=== PATIENT | female | born 1945 | race Caucasian/White ===

== ENCOUNTER 2016-11-14 16:44 | Inpatient (IN) | payer OTHER, MEDICARE ==
[~2016-11-14] VITALS: Ht 160 cm; Wt 63.5 kg
[~2016-11-14 16:44] MED LIST: ADVAIR DISKUS 21 DSK INH; AZITHROMYCIN500 MG PO; DOXYCYCLINE HY100 M2 PO; IBUPROFEN800 M1 PO; PAROXETINE20 MG PO; PEPCID20 MG PO; PREDNISONE 20MG20 MG PO; PROAIR HFA0.09 MG/Ac INH; SPIRIVA 18 MCG18 MCG INH
--- NOTE | 2016-11-14 16:50 | NUR ---
PT TO TRIAGE WITH HER DAUGHTER, PT HAS HISTORY OF COPD AND IS O2 DEPENDENT AT 2L AT NIGHT, PT STATES THAT SINCE TUESDAY SHE HAS BEEN FEELING WEAK, SOB, PT USED HER O2 ALL DAY TODAY , ON ARRIVAL O2 SAT 91 % ON RA. LOOSE NON PRODUCTIVE COUGH NOTED. PT USED NEBULIZER WITH NO RELIEF
[2016-11-14] MEDS ORDERED: PROAIR HFA8.5 GM INH (17:37)
[2016-11-14] MEDS ORDERED: ALBUTEROL2.5 MG/3 M INH/SOL (17:37)
[2016-11-14] MEDS ORDERED: SPIRIVA18 MCG INH (17:38)
[2016-11-14] MEDS ORDERED: NAMENDA XR28 M1 PO (17:39)
[2016-11-14] MEDS ORDERED: BUSPIRONE HCL15 M1 (17:40)
--- NOTE | 2016-11-14 17:40 | NUR ---
APPRECIATE TRIAGE NOTE. PT TO ROOM 3 VIA WHEELCHAIR BUT INSISTED SHE COULD AMBULATE TO BATHROOM TO PROVIDE URINE SPECIMEN. PT NOTED TO BECOME SHORT OF BREATH WITH EXERTION AND ASSISTED BACK TO ROOM VIA WHEELCHAIR. AT REST PT DOES NOT APPEAR SHORT OF BREATH BUT SAO2 IS 89% ON RA. PT PLACED ON NC 2L WITH IMPROVEMENT TO 94%. RT TO BEDSIDE AT THIS TIME FOR DUONEB, NURSING WILL CONTINUE TO MONITOR.
[2016-11-14] MEDS ORDERED: PAROXETINE HCL20 M1 PO (17:42)
[2016-11-14] MEDS ORDERED: ADVAIR 250-501 EACH INH (17:44)
[2016-11-14] MEDS ORDERED: LIDOCAINE35.44 GM TOP (17:44)
--- NOTE | 2016-11-14 18:11 | ED DYSPNEA/ASTHMA COMPLAINT ---
History of Present Illness General Chief Complaint: Dyspnea (COPD, CHF, Other) Stated Complaint: SOB Source: patient Exam Limitations: no limitations Vital Signs & Intake/Output Vital Signs & Intake/Output Vital Signs Date Time Temp Pulse Resp B/P Pulse O2 O2 Flow FiO2 Ox Delivery Rate 11/14 2331 Nasal 2.0L Cannula 11/149 98.1 95 20 130/70 94 Nasal 2.0L Cannula 11/14 2153 97.5 94 20 118/72 94 Nasal 2.0L Cannula 11/14 205 97.4 91 20 121/74 93 Nasal 2.5L Cannula 11/14 1913 97.8 98 18 108/70 95 Room Air 11/14 1742 94 Nasal 2.0L Cannula 11/14 1647 97.6 100 22 135/79 91 Room Air ED Intake and Output 11/15 0000 11/14 1200 Intake Total Output Total Balance Patient 140 lb Weight Allergies Coded Allergies: Cephalosporins (THINKS SHE ENDED UP IN ICU 11/14/16) Penicillins (HIVES AND RESPIRATORY DISTRESS 11/14/16) morphine (HALLUCINATIONS 11/14/16) promethazine (COMBATIVE, LETHARGIC, AMS, COMA 11/14/16) Reconcile Medications Albuterol Sulfate (Proair Hfa) 90 MCG HFA.AER.AD 2 PUF INH Q4-6 PRN PRN COPD/ EMPHYSEMA (Reported) Albuterol Sulfate 2.5 MG/3 ML (0.083 %) VIAL.NEB 1 Vial INH/JENNY Q4P PRN COPD/ EMPHYSEMA (Reported) Azithromycin 250 MG TABLET 1 TAB PO DAILY COPD exacerbation Buspirone HCl (Unknown Strength) TABLET (Unknown Dose) UNKNOWN (Reported) Diazepam (Valium) 2 MG TABLET 1 TAB PO BID PRN anxiety/insomnia Fluticasone/Salmeterol (Advair 250-50 Diskus) 250 MCG-50 MCG/DOSE BLST.W.DEV 1 PUF INH BID COPD/EMPHYSEMA (Reported) Lidocaine HCl (Lidocaine) 5 % OINT...G. 1 RICHARD TOP PRN LEG PAIN (Reported) Memantine HCl (Namenda XR) 28 MG CAP.SPR.24 1 CAP PO DAILY MEMORY (Reported) Paroxetine HCl 20 MG TABLET 1 TAB PO AD MENTAL HEALTH (Reported) Prednisone 10 MG TABLET 1 TAB PO AD COPD exacerbation On Take 11/19-11/20 40 MG 11/21-11/22 30 MG 11/23-11/24 20 MG 11/25-11/26 10 MG Then stop Tiotropium Chamberino (Spiriva) 18 MCG CAP.W.DEV 1 CAP INH DAILY COPD/EMPHYSEMA (Reported) Triage Note: PT TO TRIAGE WITH HER DAUGHTER, PT HAS HISTORY OF COPD AND IS O2 DEPENDENT AT 2L AT NIGHT, PT STATES THAT SINCE TUESDAY SHE HAS BEEN FEELING WEAK, SOB, PT USED HER O2 ALL DAY TODAY , ON ARRIVAL O2 SAT 91 % ON RA. LOOSE NON PRODUCTIVE COUGH NOTED. PT USED NEBULIZER WITH NO RELIEF Triage Nurses Notes Reviewed? yes HPI: This patient is a 70-year-old female the past medical history including COPD and pneumonia who presented to the emergency department today for evaluation of increased shortness of breath. This patient uses 2 L nasal cannula of oxygen at night. However, since Tuesday she has had increased shortness of breath and has needed to use her oxygen all day today. The patient reported that she has a productive cough. She denied any fevers, chills, chest pain, palpitations, abdominal pain, nausea, vomiting, or any other associated symptoms. No hemoptysis. No unilateral leg pain or unilateral leg swelling. No calf tenderness. (JOSE FLORES PA-C) Past History Travel History Traveled to [place] past 21 day No Medical History Any Pertinent Medical History? see below for history Neurological: NONE EENT: NONE Cardiovascular: hypertension Respiratory: COPD Gastrointestinal: NONE Hepatic: NONE Renal: NONE Musculoskeletal: ARTHRISTIS Psychiatric: depression Endocrine: NONE Blood Disorders: NONE Cancer(s): NONE STUDENT AMBASSADOR/Reproductive: NONE Pneumonia Vaccine: 06/12/06 Influenza Vaccine: 06/12/12 Surgical History Surgical History: non-contributory Psychosocial History Who do you live with Son Services at Home None What is your primary language Sierra Leonean Tobacco Use: Never used ETOH Use: denies use Illicit Drug Use: denies illicit drug use Family History Family History, If Any: SISTER (lupus). DAUGHTER (lupus). FATHER (lung cancer). Hx Contributory? No (JOSE FLORES PA-C) Review of Systems Review of Systems Constitutional: Reports: no symptoms. EENTM: Reports: no symptoms. Respiratory: Reports: see HPI. Cardiovascular: Reports: no symptoms. GI: Reports: no symptoms. Genitourinary: Reports: no symptoms. Musculoskeletal: Reports: no symptoms. Skin: Reports: no symptoms. Neurological/Psychological: Reports: no symptoms. All Other Systems: Reviewed and Negative (JOSE FLORES PA-C) Physical Exam Physical Exam Respiratory: chest non-tender, MILD RESPIRATORY DISTRESS. iNSPIRATORY WHEEZES ALL LUNG AHUMADA. dIMINISHED BREATH SOUNDS. nO RALES OR RHONCHI. nO STRIDOR Comments: Well-developed well-nourished person in no acute distress HEENT: Normal EENT exam, head normocephalic, moist mucous membranes Neck: Supple. No lymphadenopathy Back: Normal inspection with no bony or muscular deformities Cardiovascular: Regular rate and rhythm with no murmurs, rubs or gallops Abdomen: Soft, nontender, nondistended Extremity: No edema, no calf tenderness to palpation, normal and equal pulses. Neuro: Alert oriented x3, cranial nerves II through XII grossly intact. Skin: No appreciable rash on exposed skin, skin is warm and dry. Psych: Mood and affect is normal Core Measures ACS in differential dx? Yes Severe Sepsis Present: No Septic Shock Present: No (JOSE FLORES PA-C) Progress Differential Diagnosis: asthma, AMI, bronchitis, costochondritis, CHF, COPD, musculoskeletal pain, pericarditis, pulmonary embolism, pneumonia, unstable angina Plan of Care: Orders Procedure Date/time Status Regular Diet 11/15 B Active CBC WITHOUT DIFFERENTIAL 11/15 599 Active BASIC ELECTROLYTES PLUS BUN&CR 11/15 599 Active Vital Signs 11/14 2329 Active Teach/Educate 11/14 2329 Active Pain Treatment and Response 11/14 2329 Active Nutritional Intake, Monitor 11/14 2329 Active Isolation 11/14 2329 Active Intake & Output 11/14 2329 Active Patient Care Conference 11/14 2329 Active Activity/Ambulation 11/14 2329 Active Pathway - chart 11/14 2137 Active House Staff 11/14 2137 Active Patient Data 11/14 2137 Active Patient Data 11/14 1954 Active RAPID VIRAL INFLUENZA A 11/14 1938 Complete Saline Lock 11/15 1923 Active Misc Message 11/15 1923 Active ED Holding Orders 11/15 1923 Active Admit to inpatient 11/15 1923 Active Vital Signs 11/15 1923 Active Code Status 11/15 1923 Active Intake & Output 11/14 1742 Active ARTERIAL BLOOD GAS (GEN) 11/14 173 Active BLOOD CULTURE 11/14 1736 Active URINALYSIS 11/14 173 Complete TROPONIN LEVEL 11/14 1736 Complete D-DIMER 11/14 1736 Complete COMPREHENSIVE METABOLIC PANEL 11/14 1736 Complete CBC WITHOUT DIFFERENTIAL 11/14 1736 Complete B-TYPE NATRIURETIC PEP (BNP) 11/14 1736 Complete EKG 11/14 1736 Active TRC EVALUATION (GEN) 11/14 UNK Active VTE Mechanical Prophylaxis 11/14 UNK Active Current Medications Sig/Polo Start time Last Medication Dose Stop Time Status Admin Azithromycin 250 MG DAILY 11/15 1000 AC (Zithromax) Enoxaparin Sodium 40 MG DAILY 11/15 1000 AC (Lovenox) Memantine 28 MG DAILY 11/15 1000 UNVr (Namenda) Paroxetine HCl 20 MG DAILY 11/15 1000 AC (Paxil) Tiotropium Chamberino 1 PUF DAILY 11/15 1000 AC (Spiriva) Guaifenesin 600 MG Q12 PRN 11/14 2300 AC (Mucinex) Methylprednisolone 40 MG Q8 11/14 2200 AC (Solumedrol) Acetaminophen 650 MG Q6P PRN 11/14 214 AC (Tylenol) Acetaminophen 1,000 MG Q6P PRN 11/14 214 AC (Ofirmev) Ibuprofen 600 MG Q6PRN PRN 11/14 214 AC (Motrin) Azithromycin 500 MG ONCE ONE 11/14 1944 CAN (Zithromax) 11/15 2043 Dextrose/Water 250 ML (D5W) Laboratory Tests 11/14/161940: Urinalysis LIGHT H, Urine Color YEL, Urine Clarity HAZY H, Urine pH 6.0, Ur Specific [place] 1.025, Urine Protein TRACE H, Urine Ketones NEG, Urine Nitrite NEG, Urine Bilirubin NEG@ICTO, Urine Urobilinogen 2.0 H, Ur Leukocyte Esterase MOD H, Ur Microscopic SEDIMENT EXAMINED, Urine RBC RARE, Urine WBC 15-25 H, Urine Crystals 1+ CA OX H, Urine Bacteria MANY H, Urine Hemoglobin SMALL H, Urine Glucose NEG 11/14/161804: Anion Gap 9, Estimated GFR > 60, BUN/Creatinine Ratio 12.9, Glucose 113 H, Calcium 9.4, Total Bilirubin 1.0, AST 17, ALT 29, Alkaline Phosphatase 122, Troponin I < 0.01, Vlo-K-Ibjpppiqccn Pept 202 H, Total Protein 6.6, Albumin 3.5 , Globulin 3.1, Albumin/Globulin Ratio 1.1, D-Dimer 276 H, CBC w Diff NO MAN DIFF REQ, RBC 4.45, MCV 88.6, MCH 29.3, RDW 13.2, MPV 8.7, Gran % 86.1 H, Lymphocytes % 7.5 L, Monocytes % 5.4, Eosinophils % 0.6, Basophils % 0.4, Absolute Granulocytes 10.1 H, Absolute Lymphocytes 0.9 L, Absolute Monocytes 0.6, Absolute Eosinophils 0.1, Absolute Basophils 0, PUBS MCHC 33.1 11/14/16 1755: pH 7.42, pCO2 41, pO2 72 L, HCO3 26, ABG O2 Sat (Measured) 94.0 L, P-50 (Temp Corrected) Y, Carboxyhemoglobin 1.1 L, O2 Concentration % 2L, Temperature 97.1, O2 Delivery Method N/C, Phlebotomy Draw Site RIGHT RADIAL Microbiology 11/15 1951 NASOPHARYN: Influenza Virus A & B Rapid Smear - COMP 11/15 1819 BLOOD: Blood Culture - RECD 11/15 1819 BLOOD: Blood Culture - RECD Diagnostic Imaging: Viewed by Me: Radiology Read. Discussed w/RAD: Radiology Read. CXR Impression: PATIENT: LINDA MARTINES PRESENT AGE : 70 PATIENT ACCOUNT NO: [id number] : 46 LOCATION: [facility] ORDERING PHYSICIAN: JOSE FLORES PA-C SERVICE DATE: 11/14/16 EXAM TYPE: RAD - XRY-CHEST XRAY, PA AND LATERAL EXAMINATION: XR CHEST CLINICAL INFORMATION: Pneumonia. COMPARISON: CXR from 11/05/2014 TECHNIQUE: 2 views of the chest were obtained. FINDINGS: Lungs are chronically hyperinflated, suggestive of chronic obstructive pulmonary disease. There are a few linear opacities of discoid atelectasis and/or scarring within the lung bases, similar in appearance compared to 11/05/2014. No acute pulmonary consolidation or pleural effusion. The cardiac silhouette is normal in size. There is dextroscoliosis of the thoracic spine. IMPRESSION: 1. No evidence of pneumonia. 2. The lungs are chronically hyperexpanded -- suggestive of obstructed pulmonary disease. 3. Bibasilar atelectasis. DICTATED BY: NAGI FLORES MD DATE/TIME DICTATED:1838 DIRECTOR OF PARKS AND RECREATION:REBECCA DATE/TIME TRANSCRIBED:11/14/161838 CONFIDENTIAL, DO NOT COPY WITHOUT APPROPRIATE AUTHORIZATION. <Electronically signed in Other Vendor System> SIGNED BY: NAGI FLORES MD 11/14/161845 Initial ED EKG: normal axis, normal intervals, no ST T wave changes, SINUS TACHYCARDIA, 96 BPM (SANDRA MARR,JOSE) Departure Departure Disposition: STILL A PATIENT Condition: Stable Clinical Impression Primary Impression: COPD exacerbation Referrals: CLARISSE HOLT MD (PCP/Family) Departure Forms: Customer Survey General Discharge Information Prescriptions: Current Visit Scripts Azithromycin 1 TAB PO DAILY #2 TAB Prednisone 1 TAB PO AD #20 TAB On Take 11/19-11/20 40 MG 11/21-11/22 30 MG 11/23-11/24 20 MG 11/25-11/26 10 MG Then stop Diazepam (Valium) 1 TAB PO BID PRN anxiety/insomnia #20 TAB Admission Note Spoke With: CALE DENTON MD Documentation of Exam: Documentation of any treatments & extenuating circumstances including Concerns Regarding Discharge (functional status, medication knowledge or non-compliance, living conditions, etc.) that warrant an admission rather than observation: [ This patient is a 70-year-old female the past medical history including hypertension, COPD, and pneumonia who presented to emergency department today for increased shortness of breath since Tuesday. Patient has been eating to use oxygen throughout the day where she normally use her home oxygen only at night. Hypoxic. Likely COPD exacerbation. This patient should be admitted to general medicine for IV Solu-Medrol, IV antibiotics, IV fluids, possible pulmonology consultation, Trend labs, and close monitoring. This patient is a poor candidate for outpatient treatment. Premature discharge could prove medically harmful.] (JOSE FLORES PA-C) PA/INDUSTRIAL DESIGN INTERN Co-Sign Statement Statement: ED Attending supervision documentation- [] I saw and evaluated the patient. I have also reviewed all the pertinent lab results and diagnostic results. I agree with the findings and the plan of care as documented in the PA's/INDUSTRIAL DESIGN INTERN's documentation. [x] I have reviewed the ED Record and agree with the PA's/INDUSTRIAL DESIGN INTERN's documentation. [] Additions or exceptions (if any) to the PAs/INDUSTRIAL DESIGN INTERN's note and plan are summarized below: [] (ROD HAWK,COLBY Garcia) Critical Care Note Critical Care Note Critical Care Time: non-applicable (SANDRA MARR,JOSE)
[2016-11-14 18:24] LABS: ABSOLUTE BASOPHIL COUNT 0 /CUMM (0.0-0.2); ABSOLUTE EOSINOPHIL COUNT 0.1 /CUMM (0.0-0.7); ABSOLUTE GRANULOCYTE CT 10.1 /CUMM (1.4-6.5); ABSOLUTE LYMPH COUNT 0.9 /CUMM (1.2-3.4); ABSOLUTE MONOCYTE COUNT 0.6 /CUMM (0.10-0.60); BASOPHIL % 0.4 % (0.0-2.0); EOSINOPHIL % 0.6 % (0-5); GRANULOCYTE % 86.1 % (42.2-75.2); HEMATOCRIT 39.4 % (37-47); MEAN CORPUSCULAR HGB 29.3 PG (27.0-31.0); MEAN CORPUSCULAR HGB CONC 33.1 G/DL (33.0-37.0); MEAN CORPUSCULAR VOLUME 88.6 FL (81.0-99.0); MEAN PLATELET VOLUME 8.7 FL (7.4-10.4); PLATELET COUNT 239 /CUMM (130-400); RBC DISTRIBUTION WIDTH 13.2 % (11.5-14.5); RED BLOOD CELL CT 4.45 /CUMM (4.20-5.40)
[2016-11-14 18:42] LABS: WHITE BLOOD CELL COUNT 11.8 /CUMM (4.8-10.8)
--- NOTE | 2016-11-14 18:46 | RADIOLOGY REPORT ---
EXAMINATION: XR CHEST CLINICAL INFORMATION: Pneumonia. COMPARISON: CXR from 11/05/2014 TECHNIQUE: 2 views of the chest were obtained. FINDINGS: Lungs are chronically hyperinflated, suggestive of chronic obstructive pulmonary disease. There are a few linear opacities of discoid atelectasis and/or scarring within the lung bases, similar in appearance compared to 11/05/2014. No acute pulmonary consolidation or pleural effusion. The cardiac silhouette is normal in size. There is dextroscoliosis of the thoracic spine. IMPRESSION: 1. No evidence of pneumonia. 2. The lungs are chronically hyperexpanded -- suggestive of obstructed pulmonary disease. 3. Bibasilar atelectasis.
--- NOTE | 2016-11-14 19:39 | NUR ---
PA SANDRA TO BEDSIDE TO DISCUSS RESULTS AND POC.
--- NOTE | 2016-11-14 19:40 | NUR ---
PT MEDICATED PER EMAR.
--- NOTE | 2016-11-14 20:32 | NUR ---
PHARMACY CALLED FOR ELENA FARRAR, MESSAGE LEFT.
--- NOTE | 2016-11-14 20:35 | NUR ---
PT ASSIGNED TO 220-2
--- NOTE | 2016-11-14 20:42 | Admission Certification ---
Admission Certification Certification Statement - As attending physician, I certify that at the time of - admission, based on clinical presentation, severity of - symptoms, need for further diagnostic testing and - therapeutic interventions, and risk of adverse outcomes - without in-hospital treatment, in my clinical assessment, - this patient requires an acute hospital stay for a minimum - of two nights or longer. I have also considered psychsocial - factors such as support system, advanced age, financial - issues, cognitive issues, and failed out-patient treatments, - past re-admission history, safety of patient, and lack of - compliance as applicable. Specific rationale supporting this admission is: Acute on chronic hypoxemic respiratory failure 2/2 COPD exacerbation precipitated by acute bronchitis.
--- NOTE | 2016-11-14 20:48 | NUR ---
HOUSE STAFF TO BEDSIDE FOR EVAL.
--- NOTE | 2016-11-14 21:21 | NUR ---
JOAN MCKAY TO CALL BACK FOR PT REPORT.
--- NOTE | 2016-11-14 21:37 | History & Physical ---
SALOMÓN HAWK,[facility] 11/14/16 2136: General Information and HPI MD Statement: I have seen and personally examined LINDA MARTINES and documented this H&P. The patient is a 70 year old F who presented with a patient stated chief complaint of shortness of breath. Source of Information: patient Exam Limitations: no limitations History of Present Illness: This is a 70 yo pleasent lady with a past medical history of COPD on nocturnal 2 L, dementia, remote history of SVT presents to [place] ED with chief complaint of progressively worsening shortness of breath. Onset of increased dyspnea is 3 days ago (Tuesday), with worsening progression today. Reporting worsening dypnea on minimal ambulation (going to the bathroom) and needing to use 2L during daytime. Associated symptoms include cough and increased sputum production. Patient describes the sputum as clear but with increased viscosity. She also reports a recent increase in frequency of her nebulizer use. Today, patient started experiencing nausea and some dizziness. Patient denies any fever, chills, recent infection, recent hospitalization, sick contacts or recent travel. Patient does not endorse any chest pain, palpitation, increased orthopnea, increased lower extremity swelling or unintentional weight gain. 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 At baseline, patient is independent with ADLs and ambulates freely without walking aide. She also reports being up-to-date with her yearly influenza vaccination and the 2 pneumococcal vaccines. Allergies/Medications Allergies: Coded Allergies: Cephalosporins (THINKS SHE ENDED UP IN ICU 11/14/16) Penicillins (HIVES AND RESPIRATORY DISTRESS 11/14/16) morphine (HALLUCINATIONS 11/14/16) promethazine (COMBATIVE, LETHARGIC, AMS, COMA 11/14/16) Home Med list Albuterol Sulfate (Proair Hfa) 90 MCG HFA.AER.AD 2 PUF INH Q4-6 PRN PRN COPD/ EMPHYSEMA (Reported) Albuterol Sulfate 2.5 MG/3 ML (0.083 %) VIAL.NEB 1 Vial INH/JENNY Q4P PRN COPD/ EMPHYSEMA (Reported) Buspirone HCl (Unknown Strength) TABLET (Unknown Dose) UNKNOWN (Reported) Fluticasone/Salmeterol (Advair 250-50 Diskus) 250 MCG-50 MCG/DOSE BLST.W.DEV 1 PUF INH BID COPD/EMPHYSEMA (Reported) Lidocaine HCl (Lidocaine) 5 % OINT...G. 1 RICHARD TOP PRN LEG PAIN (Reported) Memantine HCl (Namenda XR) 28 MG CAP.SPR.24 1 CAP PO DAILY MEMORY (Reported) Paroxetine HCl 20 MG TABLET 1 TAB PO AD MENTAL HEALTH (Reported) Tiotropium [place] (Spiriva) 18 MCG CAP.W.DEV 1 CAP INH DAILY COPD/EMPHYSEMA (Reported) Past History Travel History Traveled to [place] past 21 day No Medical History Neurological: NONE EENT: NONE Cardiovascular: hypertension Respiratory: COPD Gastrointestinal: NONE Hepatic: NONE Renal: NONE Musculoskeletal: ARTHRISTIS Psychiatric: depression Endocrine: NONE Blood Disorders: NONE Cancer(s): NONE BROADCAST DESIGNER/Reproductive: NONE Pneumonia Vaccine: 06/12/06 Influenza Vaccine: 06/12/12 Surgical History Surgical History: non-contributory Past Family/Social History Family History Relations & Conditions if any SISTER (lupus). DAUGHTER (lupus). FATHER (lung cancer). Psychosocial History Services at Home: None ETOH Use: denies use Illicit Drug Use: denies illicit drug use Review of Systems Review of Systems Constitutional: Reports: see HPI. EENTM: Denies: eye pain, eye drainage, eye tearing, icterus. Cardiovascular: Denies: chest pain, edema, orthopena, palpitations, peripheral edema. Respiratory: Reports: cough, short of breath, sputum production. Denies: hemoptysis, orthopnea. GI: Denies: diarrhea, distention, bowel incontinence, melena. Genitourinary: Denies: hesitation, nocturia, pain. Musculoskeletal: Denies: joint pain, joint swelling, muscle pain. Skin: Denies: change in skin color, change in hair/nails. Neurological/Psychological: Denies: cognitive dysfunction, confusion. Hematologic/Endocrine: Reports: no symptoms. Immunologic/Allergic: Reports: no symptoms. Exam & Diagnostic Data Last 24 Hrs of Vital Signs/I&O Vital Signs Date Time Temp Pulse Resp B/P Pulse O2 O2 Flow FiO2 Ox Delivery Rate 11/14 2228 98.1 95 20 130/70 94 Nasal 2.0L Cannula 11/14 2152 97.5 94 20 118/72 94 Nasal 2.0L Cannula 11/15 2051 97.4 91 20 121/74 93 Nasal 2.5L Cannula 11/14 1913 97.8 98 18 108/70 95 Room Air 11/14 1742 94 Nasal 2.0L Cannula 11/14 1647 97.6 100 22 135/79 91 Room Air Physical Exam General Appearance Alert, Oriented X3, Cooperative Skin No Significant Lesion HEENT Atraumatic, PERRLA, dry oral mucosa Neck Supple, No JVD, No thryomegaly Lymphatic Cervical nl Cardiovascular Regular Rate, Normal S1, Normal S2, No Murmurs, Gallops, Rubs Lungs decreased breath sounds b/l. Abdomen Normal Bowel Sounds, Soft, No Tenderness, No Hepatospenomegaly Neurological Normal Speech, Normal Tone, Sensation Intact Extremities No Clubbing, No Cyanosis, No Edema, Normal Pulses, No Tenderness/ Swelling Vascular Normal Pulses, Pulses Symmetrical Assessment/Plan Assessment: This is a 70-year-old lady with a past medical history of COPD on 2 L nocturnal oxygen presents with signs and symptoms consistent with COPD exacerbation ( increased dyspnea, increased cough, and increased sputum production). Patient does not have any recent hospitalization and last PFTs were 3 years ago. Patient vital signs are unremarkable, with labs indicating mild leukocytosis. ABG unremarkable for any hypercapnia or hypoxia. Chest x-ray is unremarkable for any acute pneumonia, but does show some bibasilar atelectasis. Assessment and plan #Acute respiratory failure Patient is endorsing recent use of 2 L O2 supplementation in the daytime due to increased shortness of breath. At baseline, patient only used nocturnal O2 supplementation. Most likely etiology of patient's acute hypoxic respiratory failure is her episode of acute exacerbation of COPD. The bibasilar atelectasis Edith contributive to increased shortness of breath Plan * Continue O2 supplementation to keep sats above 90% * Will consider tapering off O2 tomorrow based on patient tolerance * Incentive spirometry * PT therapy #Acute exacerbation of COPD Evident by increased cough, dyspnea, sputum production. Plan * Admit to general medicine * O2 supplementation to keep sats above 90 * Solu-Medrol 40 mg every 8h with a goal of transitioning to oral prednisone rapid taper tomorrow if patient status improves * Azithromycin 500 mg for 3 days for anti-inflammatory properties * TRC /nebs * Mucinex 600 mg ER twice a day for cough /sputum * Continue Spiriva * PT therapy #History of dementia * Continue Namenda #History of depression * Continue paroxetine 20 mg As Ranked By This Provider Problem List: 1. COPD exacerbation Core Measures/Miscellaneous Acute Coronary Syndrome ACS Diagnosis: No Cerebrovascular Accident CVA/TIA Diagnosis: No Congestive Heart Failure CHF Diagnosis: No Venous Thromboembolism VTE Risk Factors: Age > 40 [address] [facility] VTE prophylaxis d/t: No contraindications No VTE Pharm Prophylaxis d/t: No contraindications VTE Diagnosis: No VTE Type: NONE VTE Confirmed by (Test): NONE Severe Sepsis Severe Sepsis Present: No Septic Shock Septic Shock Present: No Miscellaneous Documentation Attending Case Discussed With: SONIA DENTON MDGi Primary Care Physician: CLARISSE HOLT MD Patient sees these Specialists Corporate Planning Manager Level of Patient Care: General Medicine MELVINA LIANG 11/14/162141: Resident Review Statement Resident Statement: examined this patient, discussed with university intern, agreed with university intern Other Findings: Patient is a 70-year-old woman with a past medical history significant for COPD on 2 L of nocturnal oxygen at baseline, history of anxiety and depression, history of SVT in 2005 who was treated conservatively presented to the ED for evaluation of worsening shortness of breath since Tuesday. Patient mentioned that her symptoms started with weakness and lethargy on Tuesday , reported worsening shortness of breath with productive cough, used oxygen during the day as well on Tuesday. Denied any fever or chills. Denied any sick contacts or recent travels. Denies any chest discomfort or palpitations. Patient denied any urinary bowel habit complaints her appetite remained poor for the last 24 hours today she became very short of breath associated with nausea and dizziness and was brought to the ER for further assessment. In the ED patient received one-time dose of IV Solu-Medrol 125 mg and levofloxacin with [facility] nebs and her symptoms improved. Patient has a history of COPD usually follows up with Dr. Maurer as an outpatient but hasn't seen him for almost 3 years now. She has been repeatedly admitted for pneumonia in the hospital, last admission was about 5 years ago. Vitals on admission temperature 97.6, pulse 100, respiratory rate 22, blood pressure 135/79 saturating more than 92% on 2 L. General Appearance: Alert and oriented 3 , not in acute distress Skin: Grossly normal HEENT: PEERLA Neck: Supple, No JVD Cardiovascular: Regular Rate, Normal S1, Normal S2, No Murmurs Lungs: Decreased respirations bilaterally without any wheezes Abdomen: Normal Bowel Sounds, without any tenderness Neurological: Neuro exam grossly intact, Extremities: No Clubbing, No Cyanosis, No Edema. Vascular: Normal Pulses . Pertinent labs on admission WBC count count 11.8 without any bandemia, patient is stable, BEP normal ,ABG normal pH 7.42 with PCO2 of 41 and PO2 of 72. Chest x-ray showed No evidence of pneumonia.The lungs are chronically hyperexpanded -- suggestive of obstructed pulmonary disease. Assessment and plan: 1. Acute on chronic COPD exacerbation: * We'll admit the patient to general floor * Continue with IV Solu-Medrol 40 mg every 8 hours * Blood cultures have been sent will send sputum cultures as well * Start azithromycin for its anti-inflammatory properties * Continue TRC nebs. * Will obtain pulmonology consult Dr. Maurer in the morning * Continue oxygen to keep saturations above 92% * Watch for any hemodynamic stability. 2. History of anxiety and depression: * Continue home medications including paroxetine. 3. History of dementia * Continue home dose of Namenda Mild to moderate pain controlled with Tylenol and ibuprofen DVT prophylaxis with Lovenox Patient is full code CORRIE HAWK, [facility] 11/14/16 2354: Attending MD Review Statement Attending Statement Attending MD Statement: examined this patient, discuss w/resident/PA/TITLE I MATH TUTOR, agreed w/resident/PA/TITLE I MATH TUTOR Attending Assessment/Plan: 70 yo F with h/o COPD on nocturnal 2L O2, depression, dementia, multiple pneumonias, is here with 2 days h/o lethargy, sore throat, flu-like symptoms followed by cough productive of clear phlegm and worsening exertional dyspnea. She tried her nebs and used oxygen throughout the day on Tuesday without much effect. She typically gets allergies around Spring time. Uptodate with flu and pneumonia vaccine. No sick contacts or recent travel. Last COPD exacerbation was in 2014, never intubated. Follows Dr. Tomlin. Vitals: O2 sats 89% on RA --> 94% on 2L, afebrile, tachycardic 90-100's, BP 121/ 74. Exam: AAO, dry mucous membranes, Chest b/l reduced air entry, scattered rare wheeze, Heart S1S2 tachycardic. Labs: WBC 11.8, D-dimer 276, trop neg, glucose 113. AB.42/41/72/26. CXR: no pneumonia, chronically hyperexpanded lungs, bibasilar atelectasis. UA hazy, trace protein, mod leukocyte esterase, WBC 15-25 , calcium oxalate crystals. EKG: Sinus tachycardia, Qtc 460, no acute changes. Echo (2011): EF 60%. 1. Acute on chronic hypoxemic respiratory failure in the setting of COPD exacerbation precipitated by acute bronchitis. GM admit, TRC nebs, sputum culture, IV steroids, azithromycin for 5 days. Patient received levofloxacin in ER (patient reports being told that levofloxacin works better than azithro for her). However, given no evidence of pneumonia, I will treat with azithromycin instead of levofloxacin. Mucinex BID. Gentle hydration. Pulm consult (Dr. Tomlin). 2. Leukocytosis likely reactive. 3. Asymptomatic bacteriuria. Monitor off antibiotics. 4. Continue namenda for dementia, and paxil for depression. DVT ppx Lovenox. Full code.
--- NOTE | 2016-11-14 21:53 | NUR ---
REPORT GIVEN TO JOAN MCKAY. [employer] CALLED FOR PT TRANSPORT.
[2016-11-14 22:29] VITALS: BP 130/70
--- NOTE | 2016-11-15 | NUR ---
RECEIVED PT FROM ER AT 2215. A/O X3. VSS. ON 2L O2 NC. LUNG AHUMADA DIMINISHED. C/O EX SOB. 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 UTD ON FLU SHOT. DENIES PAIN OR DISCOMFORT. SKIN CDI. REFUSED ALPS. OOB INDEPENDENT TO TOILET. WILL MONITOR.
[2016-11-15 06:30] VITALS: BP 120/60
--- NOTE | 2016-11-15 07:08 | PN- Housestaff ---
VADIM HAWK,[facility] 11/15/16 0708: Subjective Follow-up For: COPD EXACERBATION (SOB, COUGH) Subjective: Patient reports her SOB has much improved, still has a lot of cough and greyish phlegm, no fever, no chest pain or palpitation. Has no abdominal pain or diarrhea, no changes in the urine, no headache or dizziness. Review of Systems Constitutional: Denies: chills, fever. EENTM: Reports: no symptoms. Cardiovascular: Denies: chest pain, palpitations. Respiratory: Reports: cough, sputum production. Denies: short of breath, wheezing. Gastrointestinal: Denies: abdominal pain, changes in stool. Genitourinary: Reports: no symptoms. Musculoskeletal: Reports: no symptoms. Skin: Reports: no symptoms. Neurological/Psychological: Reports: no symptoms. Objective Last 24 Hrs of Vital Signs/I&O Vital Signs Date Time Temp Pulse Resp B/P Pulse O2 O2 Flow FiO2 Ox Delivery Rate 11/15 0630 97.4 92 20 120/60 95 Nasal 2.0L Cannula 11/14 2331 Nasal 2.0L Cannula 11/14 2229 98.1 95 20 130/70 94 Nasal 2.0L Cannula / 2153 97.5 94 20 118/72 94 Nasal 2.0L Cannula / 2052 97.4 91 20 121/74 93 Nasal 2.5L Cannula / 1913 97.8 98 18 108/70 95 Room Air / 1742 94 Nasal 2.0L Cannula / 1647 97.6 100 22 135/79 91 Room Air Intake & Output 11/15 0800 / 0000 11/14 1600 Intake Total Output Total Balance Patient 63.503 kg Weight Physical Exam General Appearance: Alert, Oriented X3, Cooperative, No Acute Distress Skin: No Significant Lesion HEENT: Atraumatic, EOMI Neck: Supple Cardiovascular: Regular Rate, Normal S1, Normal S2, No Murmurs Lungs: scattered wheezing and rhonchi on both lungs, Abdomen: Normal Bowel Sounds, Soft, No Tenderness Neurological: Normal Speech, Normal Tone Extremities: No Clubbing, No Edema Vascular: Pulses Symmetrical Current Medications: Current Medications Sig/Polo Start time Last Medication Dose Route Stop Time Status Admin Acetaminophen 650 MG Q6P PRN 11/14 2144 AC PO Acetaminophen 1,000 MG Q6P PRN 11/14 2144 AC IV Albuterol Sulfate 3 ML ONCE ONE 11/14 1744 DC 11/14 INH 11/14 1745 175 Azithromycin 250 MG DAILY 11/15 1000 AC PO Azithromycin 500 MG ONCE ONE 11/14 1944 CAN Dextrose/Water 250 ML IV 11/15 2043 Enoxaparin Sodium 40 MG DAILY 11/15 1000 AC SC Guaifenesin 600 MG Q12 PRN 11/14 2300 AC PO Ibuprofen 600 MG Q6PRN PRN 11/14 2144 AC PO Ipratropium [place] 2.5 ML ONCE ONE 11/14 1744 DC 11/14 INH 11/14 1745 175 Levofloxacin 500 MG ONCE ONE 11/14 1944 DC 11/14 PO 11/14 Memantine 20 MG DAILY 11/15 1000 AC PO Methylprednisolone 40 MG Q8 11/14 2200 AC 11/15 IV 0648 Methylprednisolone 0 .STK-MED ONE 11/14 1948 DC .ROUTE Methylprednisolone 125 MG ONCE ONE 11/14 1914 DC 11/14 IV 11/14 Paroxetine HCl 20 MG DAILY 11/15 1000 AC PO Tiotropium [place] 1 PUF DAILY 11/15 1000 AC INH Last 24 Hrs of Lab/Angelito Results Last 24 Hrs of Labs/Mics: Laboratory Tests 11/15/16 0616: Sodium Pending, Potassium Pending, Chloride Pending, Carbon Dioxide Pending, Anion Gap Pending, BUN Pending, Creatinine Pending, BUN/Creatinine Ratio Pending , CBC w Diff Pending, WBC Pending, RBC Pending, Hgb Pending, Hct Pending, MCV Pending, MCH Pending, RDW Pending, Plt Count Pending, MPV Pending, PUBS MCHC Pending 11/14/161940: Urinalysis LIGHT H, Urine Color YEL, Urine Clarity HAZY H, Urine pH 6.0, Ur Specific [place] 1.025, Urine Protein TRACE H, Urine Ketones NEG, Urine Nitrite NEG, Urine Bilirubin NEG@ICTO, Urine Urobilinogen 2.0 H, Ur Leukocyte Esterase MOD H, Ur Microscopic SEDIMENT EXAMINED, Urine RBC RARE, Urine WBC 15-25 H, Urine Crystals 1+ CA OX H, Urine Bacteria MANY H, Urine Hemoglobin SMALL H, Urine Glucose NEG 11/14/16 1805: Anion Gap 9, Estimated GFR > 60, BUN/Creatinine Ratio 12.9, Glucose 113 H, Calcium 9.4, Total Bilirubin 1.0, AST 17, ALT 29, Alkaline Phosphatase 122, Troponin I < 0.01, Yct-P-Butpgsxoysd Pept 202 H, Total Protein 6.6, Albumin 3.5 , Globulin 3.1, Albumin/Globulin Ratio 1.1, D-Dimer 276 H, CBC w Diff NO MAN DIFF REQ, RBC 4.45, MCV 88.6, MCH 29.3, RDW 13.2, MPV 8.7, Gran % 86.1 H, Lymphocytes % 7.5 L, Monocytes % 5.4, Eosinophils % 0.6, Basophils % 0.4, Absolute Granulocytes 10.1 H, Absolute Lymphocytes 0.9 L, Absolute Monocytes 0.6, Absolute Eosinophils 0.1, Absolute Basophils 0, PUBS MCHC 33.1 11/14/16 1755: pH 7.42, pCO2 41, pO2 72 L, HCO3 26, ABG O2 Sat (Measured) 94.0 L, P-50 (Temp Corrected) Y, Carboxyhemoglobin 1.1 L, O2 Concentration % 2L, Temperature 97.1, O2 Delivery Method N/C, Phlebotomy Draw Site RIGHT RADIAL Microbiology 11/15 1951 NASOPHARYN: Influenza Virus A & B Rapid Smear - COMP 11/15 1819 BLOOD: Blood Culture - RECD 11/15 1819 BLOOD: Blood Culture - RECD Assessment/Plan Assessment: This is a 70-year-old lady with a past medical history of COPD on 2 L nocturnal oxygen presents with signs and symptoms consistent with COPD exacerbation ( increased dyspnea, increased cough, and increased sputum production). Patient does not have any recent hospitalization and last PFTs were 3 years ago. Patient vital signs are unremarkable, with labs indicating mild leukocytosis. ABG unremarkable for any hypercapnia or hypoxia. Chest x-ray is unremarkable for any acute pneumonia, but does show some bibasilar atelectasis. Assessment and plan: Acute Hypoxic respiratory failure Patient is endorsing recent use of 2 L O2 supplementation in the daytime due to increased shortness of breath. At baseline, patient only used nocturnal O2 supplementation. Most likely etiology of patient's acute hypoxic respiratory failure is her episode of acute exacerbation of COPD. The bibasilar atelectasis contribute to increased shortness of breath Plan * Continue O2 supplementation to keep sats above 90% * Will consider tapering off O2 tomorrow based on patient tolerance * Incentive spirometry * PT therapy Acute exacerbation of COPD Evident by increased cough, dyspnea, sputum production, improved compared to yesterday. Patient received one dose of levaqui in the ED. Plan * O2 supplementation to keep sats above 90, we tried to taper off the O2 to 1 L today, she desaturated to 88-89% at rest, will continue on 2L today * Solu-Medrol 40 mg every 8h with a goal of transitioning to oral prednisone rapid taper tomorrow if patient status improves * Azithromycin 250 mg for 3 days for anti-inflammatory properties * TRC /nebs * Mucinex 600 mg ER twice a day for cough /sputum * Continue Spiriva * PT therapy * Pulmonary consult with Dr. Maurer was placed, he will see the patient tomorrow am. History of dementia * Continue Namenda History of depression * Continue paroxetine 20 mg Pain: tylenol (mild pp) DVT PX: SC LOVENOX REGULAR DIET FULL CODE Problem List: 1. Acute hypoxemic respiratory failure 2. COPD exacerbation 3. Depression 4. Dementia Pain Ratin Pain Location: no pain Pain Goal: Pain 4 or less Pain Plan: mild pp Tomorrow's Labs & Rationales: CBC (initial leukocytosis, possible pneumonia) ERICKA FERMIN MD 11/15/16 1616: Attending MD Review Statement Attending Statement Attending MD Statement: examined this patient, discuss w/resident/PA/FORMING ROLL OPERATOR, agreed w/resident/PA/FORMING ROLL OPERATOR, reviewed EMR data (avail), discussed with nursing, amended to note Attending Assessment/Plan: The patient was seen and discussed with house staff. Agree with the plan of care as outlined.
[2016-11-15 08:55] LABS: ABSOLUTE BASOPHIL COUNT 0 /CUMM (0.0-0.2); ABSOLUTE EOSINOPHIL COUNT 0 /CUMM (0.0-0.7); ABSOLUTE LYMPH COUNT 0.6 /CUMM (1.2-3.4); ABSOLUTE MONOCYTE COUNT 0.1 /CUMM (0.10-0.60); BASOPHIL % 0 % (0.0-2.0); EOSINOPHIL % 0 % (0-5); HEMATOCRIT 37.8 % (37-47); MEAN CORPUSCULAR HGB 29.6 PG (27.0-31.0); MEAN CORPUSCULAR HGB CONC 33.6 G/DL (33.0-37.0); MEAN CORPUSCULAR VOLUME 88.2 FL (81.0-99.0); MEAN PLATELET VOLUME 9.2 FL (7.4-10.4); PLATELET COUNT 252 /CUMM (130-400); RED BLOOD CELL CT 4.29 /CUMM (4.20-5.40); WHITE BLOOD CELL COUNT 7.8 /CUMM (4.8-10.8)
[2016-11-15 09:48] LABS: GRANULOCYTE % 90.6 % (42.2-75.2)
[2016-11-15 14:05] VITALS: BP 118/80
[2016-11-15 21:55] VITALS: BP 134/80
[2016-11-16 06:25] VITALS: BP 112/68
--- NOTE | 2016-11-16 07:15 | PN- Housestaff ---
VADIM HAWK,[facility] 11/16/16 0715: Subjective Follow-up For: COPD exacerbation Subjective: I saw and examined the patient at bedside this morning, she is sitting in bed alert oriented in no distress, she reports today her breathing is worse than yesterday, she still has coughing and bringing up greenish phlegm. Review of Systems Constitutional: Denies: chills, fever, malaise, weakness. EENTM: Reports: no symptoms. Cardiovascular: Denies: chest pain, palpitations. Respiratory: Reports: cough, short of breath, sputum production. Denies: wheezing. Gastrointestinal: Denies: abdominal pain, changes in stool. Genitourinary: Reports: no symptoms. Musculoskeletal: Reports: no symptoms. Skin: Reports: no symptoms. Neurological/Psychological: Reports: no symptoms. Hematologic/Endocrine: Reports: no symptoms. Objective Last 24 Hrs of Vital Signs/I&O Vital Signs Date Time Temp Pulse Resp B/P Pulse O2 O2 Flow FiO2 Ox Delivery Rate 11/16 0837 94 Nasal 2.0L Cannula 11/16 0800 Nasal 2.0L Cannula 11/16 0625 97.6 87 18 112/68 92 Nasal Cannula 11/16 0000 92 Nasal 2.0L Cannula 11/15 2155 96.8 90 20 134/80 92 11/15 1609 93 Nasal 2.0L Cannula 11/15 1405 99.0 100 20 118/80 90 Nasal 2.0L Cannula 11/15 1247 Nasal 2.0L Cannula Intake & Output 11/16 1600 11/16 0800 11/16 0000 Intake Total 250 250 Output Total Balance 250 250 Intake, IV 10 10 Intake, Oral 240 240 Physical Exam General Appearance: Alert, Oriented X3, Cooperative, No Acute Distress Skin: No Significant Lesion HEENT: Atraumatic, EOMI Neck: Supple, No JVD Cardiovascular: Regular Rate, Normal S1, Normal S2, No Murmurs Lungs: Clear to Auscultation, Normal Air Movement, decreased breath sounds bilaterally Abdomen: Normal Bowel Sounds, Soft, No Tenderness Neurological: Normal Speech, Normal Tone Extremities: No Edema, Normal Pulses, No Tenderness/Swelling Vascular: Pulses Symmetrical Current Medications: Current Medications Sig/Polo Start time Last Medication Dose Route Stop Time Status Admin Acetaminophen 650 MG Q6P PRN 11/14 2144 AC PO Acetaminophen 1,000 MG Q6P PRN 03/05 2145 AC IV Albuterol Sulfate 3 ML EVERY 4 HRS/AWAKE 11/15 1600 AC 11/16 INH 0833 Azithromycin 250 MG DAILY 11/15 1000 AC 11/16 PO 0948 Enoxaparin Sodium 40 MG DAILY 11/15 1000 AC 11/15 SC 1011 Guaifenesin 600 MG Q12 PRN 11/14 2300 AC PO Ibuprofen 600 MG Q6PRN PRN 11/14 2145 AC PO Memantine 10 MG BID 11/15 1000 AC 11/16 PO 0948 Methylprednisolone 40 MG Q12 11/16 2200 CAN IV Methylprednisolone 40 MG ONCE ONE 11/16 1700 AC IV 11/16 1701 Methylprednisolone 40 MG Q8 11/14 2200 DC 11/16 IV 0534 Paroxetine HCl 20 MG DAILY 11/15 1000 AC 11/16 PO 0948 Patient Medication 1 ED .STK-MED ONE 11/15 1409 DC Teaching ED 11/15 1410 Tiotropium [place] 1 PUF DAILY 11/15 1000 AC 11/16 INH 0949 Last 24 Hrs of Lab/Angelito Results Last 24 Hrs of Labs/Mics: Laboratory Tests 11/16/16 0735: CBC w Diff NO MAN DIFF REQ, RBC 4.33, MCV 89.0, MCH 29.3, RDW 12.7, MPV 9.4, Gran % 90.8 H, Lymphocytes % 5.9 L, Monocytes % 3.2, Eosinophils % 0.1, Basophils % 0 L, Absolute Granulocytes 10.2 H, Absolute Lymphocytes 0.7 L, Absolute Monocytes 0.4, Absolute Eosinophils 0, Absolute Basophils 0, PUBS MCHC 32.9 L Assessment/Plan Assessment: This is a 70-year-old lady with a past medical history of COPD on 2 L nocturnal oxygen presents with signs and symptoms consistent with COPD exacerbation ( increased dyspnea, increased cough, and increased sputum production). Patient does not have any recent hospitalization and last PFTs were 3 years ago. Patient vital signs are unremarkable, with labs indicating mild leukocytosis. ABG unremarkable for any hypercapnia or hypoxia. Chest x-ray is unremarkable for any acute pneumonia, but does show some bibasilar atelectasis. Assessment and plan: Acute Hypoxic respiratory failure Patient is endorsing recent use of 2 L O2 supplementation in the daytime due to increased shortness of breath. At baseline, patient only used nocturnal O2 supplementation. Most likely etiology of patient's acute hypoxic respiratory failure is her episode of acute exacerbation of COPD. The bibasilar atelectasis contribute to increased shortness of breath Patient has been kept on 2 L oxygen per nasal cannula, she desaturated on 1 L * Continue O2 supplementation to keep sats above 90% * Will consider tapering off O2 tomorrow based on patient tolerance * Incentive spirometry * PT therapy Acute exacerbation of COPD Evident by increased cough, dyspnea, sputum production, improved compared to yesterday. Patient received one dose of levaqui in the ED. Plan * Decreased IV Solu-Medrol 40 mg 2 every 12 hours with a goal of transitioning to oral prednisone rapid taper tomorrow if patient status improves * Azithromycin 250 mg for 3 days for anti-inflammatory properties * TRC /nebs * Mucinex 600 mg ER twice a day for cough /sputum * Continue Spiriva * Pulmonary consult was placed with Dr. Maurer was placed, appreciated recommendations. History of dementia * Continue Namenda History of depression * Continue paroxetine 20 mg Pain: tylenol (mild pp) DVT PX: [place] LOVENOX REGULAR DIET FULL CODE Problem List: 1. Acute hypoxemic respiratory failure 2. COPD exacerbation Pain Ratin Pain Location: Patient does not have any pain Pain Goal: Pain 4 or less Pain Plan: Mild pain pathways Tomorrow's Labs & Rationales: CBC: Leukocytosis ERICKA FERMIN MD 11/16/16 1608: Attending MD Review Statement Attending Statement Attending Statement: examined this patient, discuss w/resident/PA/DICTATING TRANSCRIBING MACHINE SERVICER, agreed w/resident/PA/DICTATING TRANSCRIBING MACHINE SERVICER, reviewed EMR data (avail), discussed with nursing, discussed with case mgmt, amended to note Attending Assessment/Plan: The patient was seen and discussed with house staff. Appreciate pulmonary input. Agree with plan of care.
[2016-11-16 08:26] LABS: ABSOLUTE BASOPHIL COUNT 0 /CUMM (0.0-0.2); ABSOLUTE EOSINOPHIL COUNT 0 /CUMM (0.0-0.7); ABSOLUTE GRANULOCYTE CT 10.2 /CUMM (1.4-6.5); ABSOLUTE LYMPH COUNT 0.7 /CUMM (1.2-3.4); ABSOLUTE MONOCYTE COUNT 0.4 /CUMM (0.10-0.60); BASOPHIL % 0 % (0.0-2.0); EOSINOPHIL % 0.1 % (0-5); HEMATOCRIT 38.5 % (37-47); MEAN CORPUSCULAR HGB 29.3 PG (27.0-31.0); MEAN CORPUSCULAR HGB CONC 32.9 G/DL (33.0-37.0); MEAN PLATELET VOLUME 9.4 FL (7.4-10.4); PLATELET COUNT 256 /CUMM (130-400); RBC DISTRIBUTION WIDTH 12.7 % (11.5-14.5); RED BLOOD CELL CT 4.33 /CUMM (4.20-5.40); WHITE BLOOD CELL COUNT 11.3 /CUMM (4.8-10.8)
--- NOTE | 2016-11-16 08:35 | Cons- Pulmonary ---
General Information and HPI Consulting Request Date of Consult: 11/16/16 Requested By: bonny Reason for Consult: Exacerbation of COPD History of Present Illness: Patient is 70-year-old who is had long-standing oxygen dependent COPD admitted with increased shortness breath is several days' duration patient is no longer smoking but is exposed to secondhand smoke at home over the past several days she's had increasing cough and shortness of breath she's been using her rescue nebulizer more frequently she has no chest pain fevers chills or hemoptysis she has scant sputum Allergies/Medications Allergies: Coded Allergies: Cephalosporins (THINKS SHE ENDED UP IN ICU 11/14/16) Penicillins (HIVES AND RESPIRATORY DISTRESS 11/14/16) morphine (HALLUCINATIONS 11/14/16) promethazine (COMBATIVE, LETHARGIC, AMS, COMA 11/14/16) Home Med List: Albuterol Sulfate (Proair Hfa) 90 MCG HFA.AER.AD 2 PUF INH Q4-6 PRN PRN COPD/ EMPHYSEMA (Reported) Albuterol Sulfate 2.5 MG/3 ML (0.083 %) VIAL.NEB 1 Vial INH/JENNY Q4P PRN COPD/ EMPHYSEMA (Reported) Buspirone HCl (Unknown Strength) TABLET (Unknown Dose) UNKNOWN (Reported) Fluticasone/Salmeterol (Advair 250-50 Diskus) 250 MCG-50 MCG/DOSE BLST.W.DEV 1 PUF INH BID COPD/EMPHYSEMA (Reported) Lidocaine HCl (Lidocaine) 5 % OINT...G. 1 RICHARD TOP PRN LEG PAIN (Reported) Memantine HCl (Namenda XR) 28 MG CAP.SPR.24 1 CAP PO DAILY MEMORY (Reported) Paroxetine HCl 20 MG TABLET 1 TAB PO AD MENTAL HEALTH (Reported) Tiotropium [place] (Spiriva) 18 MCG CAP.W.DEV 1 CAP INH DAILY COPD/EMPHYSEMA (Reported) Review of Systems Review of Systems Constitutional: Denies: chills, fever. Cardiovascular: Denies: chest pain, edema. Respiratory: Reports: cough, short of breath, wheezing. Denies: hemoptysis, sputum production. GI: Denies: abdominal pain, diarrhea, melena. Genitourinary: Denies: dysuria. Past History Travel History Traveled to [place] past 21 day No Medical History Blood Transfusion Hx: No Neurological: restless leg syndrome EENT: NONE Cardiovascular: hypertension Respiratory: bronchitis, COPD, pneumonia Gastrointestinal: NONE Hepatic: NONE Renal: NONE Musculoskeletal: ARTHRISTIS Psychiatric: depression Endocrine: NONE Blood Disorders: NONE Cancer(s): NONE WOOL CLEANER/Reproductive: NONE Surgical History Surgical History: SURGERY TO [place] TITANIUM IN [place] Family History Relations & Conditions If Any: SISTER (lupus). DAUGHTER (lupus). FATHER (lung cancer). Psychosocial History Where Do You Live? Home Services at Home: None Smoking Status: Former Smoker ETOH Use: denies use Illicit Drug Use: denies illicit drug use Exam & Diagnostic Data Last 24 Hrs of Vital Signs/I&O Vital Signs Date Time Temp Pulse Resp B/P Pulse O2 O2 Flow FiO2 Ox Delivery Rate 11/16 0625 97.6 87 18 112/68 92 Nasal Cannula 11/16 0000 92 Nasal 2.0L Cannula 11/15 2155 96.8 90 20 134/80 92 11/15 1609 93 Nasal 2.0L Cannula 11/15 1405 99.0 100 20 118/80 90 Nasal 2.0L Cannula 11/15 1247 Nasal 2.0L Cannula Intake & Output 11/16 1600 11/16 0800 11/16 0000 Intake Total 250 250 Output Total Balance 250 250 Intake, IV 10 10 Intake, Oral 240 240 She remains afebrile oxygen saturation on 2 L 92% HEENT exam shows no adenopathy exam for chest shows decreased breath sounds are no wheezes or crackles or cardiac exam shows regular S1 and S2 without murmurs abdominal exam is soft nontender extremities are without edema today shows no evidence of pneumonia or congestive heart failure Last 48 Hrs of Labs/Angelito: Laboratory Tests 11/16/16 0735: CBC w Diff Pending, WBC Pending, RBC Pending, Hgb Pending, Hct Pending, MCV Pending, MCH Pending, RDW Pending, Plt Count Pending, MPV Pending, PUBS MCHC Pending 11/15/16 0616: Anion Gap 9, Estimated GFR > 60, BUN/Creatinine Ratio 20.0, Phosphorus 3.7, Magnesium 2.0, CBC w Diff NO MAN DIFF REQ, RBC 4.29, MCV 88.2, MCH 29.6, RDW 13.0, MPV 9.2, Gran % 90.6 H, Lymphocytes % 7.8 L, Monocytes % 1.6 L, Eosinophils % 0, Basophils % 0 L, Absolute Granulocytes 7.0 H, Absolute Lymphocytes 0.6 L, Absolute Monocytes 0.1 L, Absolute Eosinophils 0, Absolute Basophils 0, PUBS MCHC 33.6 11/14/161940: Urinalysis LIGHT H, Urine Color YEL, Urine Clarity HAZY H, Urine pH 6.0, Ur Specific [place] 1.025, Urine Protein TRACE H, Urine Ketones NEG, Urine Nitrite NEG, Urine Bilirubin NEG@ICTO, Urine Urobilinogen 2.0 H, Ur Leukocyte Esterase MOD H, Ur Microscopic SEDIMENT EXAMINED, Urine RBC RARE, Urine WBC 15-25 H, Urine Crystals 1+ CA OX H, Urine Bacteria MANY H, Urine Hemoglobin SMALL H, Urine Glucose NEG 11/14/161804: Anion Gap 9, Estimated GFR > 60, BUN/Creatinine Ratio 12.9, Glucose 113 H, Calcium 9.4, Total Bilirubin 1.0, AST 17, ALT 29, Alkaline Phosphatase 122, Troponin I < 0.01, Hyi-N-Qvgcpidwzzj Pept 202 H, Total Protein 6.6, Albumin 3.5 , Globulin 3.1, Albumin/Globulin Ratio 1.1, D-Dimer 276 H, CBC w Diff NO MAN DIFF REQ, RBC 4.45, MCV 88.6, MCH 29.3, RDW 13.2, MPV 8.7, Gran % 86.1 H, Lymphocytes % 7.5 L, Monocytes % 5.4, Eosinophils % 0.6, Basophils % 0.4, Absolute Granulocytes 10.1 H, Absolute Lymphocytes 0.9 L, Absolute Monocytes 0.6, Absolute Eosinophils 0.1, Absolute Basophils 0, PUBS MCHC 33.1 11/14/161754: pH 7.42, pCO2 41, pO2 72 L, HCO3 26, ABG O2 Sat (Measured) 94.0 L, P-50 (Temp Corrected) Y, Carboxyhemoglobin 1.1 L, O2 Concentration % 2L, Temperature 97.1, O2 Delivery Method N/C, Phlebotomy Draw Site RIGHT RADIAL Microbiology 11/15 1951 NASOPHARYN: Influenza Virus A & B Rapid Smear - COMP Assessment/Plan Impression/Plan: 70-year-old with chronic obstructive pulmonary disease oxygen dependent is admitted with an exacerbation out evidence of pneumonia or congestive heart failure. Recommendations: Continue IV steroids and azithromycin nebulizer and inhaled bronchodilators. Obtain sputum C&S. We'll hope to transition to by mouth prednisone tomorrow with anticipated discharge on Consult Acknowledgment - Thank you for your consult request.
[2016-11-16 09:24] LABS: GRANULOCYTE % 90.8 % (42.2-75.2)
--- NOTE | 2016-11-16 14:09 | Event Note ---
Event Note Event Note: at about 2 pm patient reported sudden onset chest pain, pressure like in the middle of the chest when she went to the bathroom. Pain is now more over the right shoulder and neck. No sweating, no SOB, no dizziness or nausea. pain does not radiate to the left arm or neck. Vital signs stable, SO2 92% on 2L NC. Chest exam: Heart: S1, S2 with no murmur, regular Lung: clear, no wheezing, decreased breath sounds bilaterally, unchanged since morning. Plan: * stat EKG and troponin Update at 3 pm: EKG is sinus rhythm and does not show any ST-T changes, Troponin < 0.01. Patient reports some vertigo and is anxious, reported hx of anxiety from the past for which she would take 5-10 mg of Valium, which she ran out of about 2-3 weeks ago. * Started valium 2 mg BID PRN for anxiety * advised to inform us if pain recurs * continue O2 supplementation to keep O2>92%
[2016-11-16 14:29] VITALS: BP 118/70
--- NOTE | 2016-11-16 20:58 | NUR ---
AROUND 130-200 PM PT STATED TO NURSE THAT SHE FELT PRESSURE ON HER CHEST. INFORMED MD. NEGATIVE TROPONIN AND SINUS TACHYCARDIA EKG. NO FURTHER ORDERED.LATER GAVE PATIENT 2MG VALIUM STATED SHE FELT SO MUCH BETTER. NO FURTHER ORDERS.
[2016-11-16 22:42] VITALS: BP 112/70
[2016-11-17 06:00] VITALS: BP 150/86
--- NOTE | 2016-11-17 07:13 | PN- Housestaff ---
VADIM HAWK,[facility] 11/17/16 0712: Subjective Follow-up For: Shortness of breath and cough Subjective: I saw and examined the patient at bedside today. Patient had a really good night sleep after we gave her Valium, patient is reporting increased dry cough and requests Tessalon pearls, she is on 3 L oxygen per nasal cannula. Review of Systems Constitutional: Denies: chills, fever, weakness. EENTM: Reports: no symptoms. Cardiovascular: Denies: chest pain, palpitations. Respiratory: Reports: cough, short of breath. Denies: sputum production. Gastrointestinal: Denies: abdominal pain, changes in stool. Genitourinary: Reports: no symptoms. Musculoskeletal: Reports: no symptoms. Skin: Reports: no symptoms. Neurological/Psychological: Reports: no symptoms. Objective Last 24 Hrs of Vital Signs/I&O Vital Signs Date Time Temp Pulse Resp B/P Pulse O2 O2 Flow FiO2 Ox Delivery Rate 11/17 0853 95 Nasal 2.0L Cannula 11/17 0800 90 Room Air 11/17 0600 98.4 89 20 150/86 93 Nasal Cannula 11/17 0000 90 Nasal 2.0L Cannula 11/16 2242 98.2 94 20 112/70 90 Nasal Cannula 11/16 1641 95 Nasal 2.0L Cannula 11/16 1429 98.2 100 20 118/70 92 Nasal 2.0L Cannula Intake & Output 11/17 1600 11/17 0800 11/17 0000 Intake Total 0 120 Output Total Balance 0 120 Intake, IV 0 20 Intake, Oral 0 100 Number 0 Bowel Movements Physical Exam General Appearance: Alert, Oriented X3, Cooperative, No Acute Distress Skin: No Significant Lesion HEENT: Atraumatic, EOMI Neck: No JVD Cardiovascular: Regular Rate, Normal S1, Normal S2, No Murmurs Lungs: decreased breath sounds bilaterally, scattered wheezing on the left side Abdomen: Soft, No Tenderness Neurological: Normal Speech, Normal Tone Current Medications: Current Medications Sig/Polo Start time Last Medication Dose Route Stop Time Status Admin Acetaminophen 650 MG Q6P PRN 11/14 2145 AC PO Acetaminophen 1,000 MG Q6P PRN 11/14 2145 AC IV Albuterol Sulfate 3 ML EVERY 4 HRS/AWAKE 11/15 1600 AC 11/17 INH 0850 Azithromycin 250 MG DAILY 11/15 1000 AC 11/17 PO 0959 Benzonatate 100 MG TID 11/17 1100 AC PO Diazepam 2 MG BID PRN 11/16 1530 AC 11/16 PO 2126 Enoxaparin Sodium 40 MG DAILY 11/15 1000 AC 11/17 SC 0956 Guaifenesin 600 MG Q12 PRN 11/14 2300 AC PO Ibuprofen 600 MG Q6PRN PRN 11/14 2145 AC PO Memantine 10 MG BID 11/15 1000 AC 11/17 PO 0957 Methylprednisolone 40 MG Q12 11/16 2200 CAN IV Methylprednisolone 40 MG ONCE ONE 11/16 1700 DC 11/16 IV 11/16 1701 1803 Paroxetine HCl 20 MG DAILY 11/15 1000 AC 11/17 PO 0958 Patient Medication 1 ED .STK-MED ONE 11/16 1413 DC Teaching ED 11/16 1414 Prednisone 60 MG DAILY 11/17 1047 AC PO 11/19 1001 Tiotropium [place] 1 PUF DAILY 11/15 1000 AC 11/17 INH 0959 Last 24 Hrs of Lab/Angelito Results Last 24 Hrs of Labs/Mics: Laboratory Tests 11/17/1615: CBC w Diff NO MAN DIFF REQ, RBC 4.29, MCV 88.8, MCH 29.5, RDW 12.6, MPV 9.4, Gran % 83.0 H, Lymphocytes % 10.4 L, Monocytes % 6.3, Eosinophils % 0, Basophils % 0.3, Absolute Granulocytes 8.6 H, Absolute Lymphocytes 1.1 L, Absolute Monocytes 0.7 H, Absolute Eosinophils 0, Absolute Basophils 0, PUBS MCHC 33.2 11/16/16 2000: Troponin I Cancelled 11/16/16 1410: Troponin I < 0.01 Assessment/Plan Assessment: This is a 70-year-old lady with a past medical history of COPD on 2 L nocturnal oxygen presents with signs and symptoms consistent with COPD exacerbation ( increased dyspnea, increased cough, and increased sputum production). Patient does not have any recent hospitalization and last PFTs were 3 years ago. Patient vital signs are unremarkable, with labs indicating mild leukocytosis. ABG unremarkable for any hypercapnia or hypoxia. Chest x-ray is unremarkable for any acute pneumonia, but does show some bibasilar atelectasis. Assessment and plan: Acute Hypoxic respiratory failure - resolved Patient is endorsing recent use of 2 L O2 supplementation in the daytime due to increased shortness of breath. At baseline, patient only used nocturnal O2 supplementation. Most likely etiology of patient's acute hypoxic respiratory failure is her episode of acute exacerbation of COPD. The bibasilar atelectasis contribute to increased shortness of breath. Patient has been kept on 2 L oxygen per nasal cannula, she desaturates on room air at rest, this morning she was On 3 L, she had increased coughing in a.m., coughing has subsided with Tessalon, she is back to 2L in the afternoon. * Continue O2 supplementation to keep sats above 90% * Will consider tapering off O2 tomorrow based on patient tolerance * Incentive spirometry * Outpatient follow up with pulmonary Acute exacerbation of COPD Evident by increased cough, dyspnea, sputum production, improved compared to yesterday. Patient received one dose of levaquin in the ED. Plan * Switched IV Solu-Medrol to by mouth prednisone starting today * Azithromycin 250 mg for anti-inflammatory properties * TRC /nebs * Mucinex 600 mg ER twice a day for cough /sputum, added Tessalon perles 3 times a day * Continue Spiriva * Pulmonary, Dr. Maurer is seeing the patient, appreciated recommendations. History of dementia * Continue Namenda History of depression * Continue paroxetine 20 mg Pain: tylenol (mild pp) DVT PX: [place] LOVENOX REGULAR DIET FULL CODE Problem List: 1. COPD exacerbation 2. Acute hypoxemic respiratory failure Pain Ratin Pain Location: No pain Pain Goal: Pain 4 or less Pain Plan: Mild pain pathways Tomorrow's Labs & Rationales: CBC (leukocytosis) ERICKA FERMIN MD 11/17/16 1723: Attending MD Review Statement Attending Statement Attending MD Statement: examined this patient, discuss w/resident/PA/FISH AND WILDLIFE BIOLOGIST, agreed w/resident/PA/FISH AND WILDLIFE BIOLOGIST, reviewed EMR data (avail), discussed with nursing, discussed with case mgmt, amended to note Attending Assessment/Plan: The patient was seen and discussed with house staff. Agree with the plan of care as outlined.
[2016-11-17 08:03] LABS: ABSOLUTE BASOPHIL COUNT 0 /CUMM (0.0-0.2); ABSOLUTE EOSINOPHIL COUNT 0 /CUMM (0.0-0.7); ABSOLUTE GRANULOCYTE CT 8.6 /CUMM (1.4-6.5); ABSOLUTE LYMPH COUNT 1.1 /CUMM (1.2-3.4); ABSOLUTE MONOCYTE COUNT 0.7 /CUMM (0.10-0.60); BASOPHIL % 0.3 % (0.0-2.0); EOSINOPHIL % 0 % (0-5); HEMATOCRIT 38.1 % (37-47); MEAN CORPUSCULAR HGB 29.5 PG (27.0-31.0); MEAN CORPUSCULAR HGB CONC 33.2 G/DL (33.0-37.0); MEAN CORPUSCULAR VOLUME 88.8 FL (81.0-99.0); MEAN PLATELET VOLUME 9.4 FL (7.4-10.4); PLATELET COUNT 279 /CUMM (130-400); RBC DISTRIBUTION WIDTH 12.6 % (11.5-14.5); RED BLOOD CELL CT 4.29 /CUMM (4.20-5.40); WHITE BLOOD CELL COUNT 10.3 /CUMM (4.8-10.8)
--- NOTE | 2016-11-17 08:05 | PN- Pulmonary ---
Subjective HPI/Critical Care Issues: Patient feels less short of breath she is ambulating freely within the room. She remains oxygen dependent. Objective Current Medications: Current Medications Sig/Polo Start time Last Medication Dose Route Stop Time Status Admin Acetaminophen 650 MG Q6P PRN 11/14 2145 AC PO Acetaminophen 1,000 MG Q6P PRN 11/14 2145 AC IV Albuterol Sulfate 3 ML EVERY 4 HRS/AWAKE 11/15 1600 AC 11/16 INH 2100 Azithromycin 250 MG DAILY 11/15 1000 AC 11/16 PO 0948 Diazepam 2 MG BID PRN 11/16 1530 AC 11/16 PO 2126 Enoxaparin Sodium 40 MG DAILY 11/15 1000 AC 11/15 SC 1011 Guaifenesin 600 MG Q12 PRN 11/14 2300 AC PO Ibuprofen 600 MG Q6PRN PRN 11/14 2145 AC PO Memantine 10 MG BID 11/15 1000 AC 11/16 PO 2124 Methylprednisolone 40 MG Q12 11/16 2200 CAN IV Methylprednisolone 40 MG ONCE ONE 11/16 1700 DC 11/16 IV 11/16 1701 1803 Methylprednisolone 40 MG Q8 11/14 2200 DC 11/16 IV 0534 Paroxetine HCl 20 MG DAILY 11/15 1000 AC 11/16 PO 0948 Patient Medication 1 ED .STK-MED ONE 11/16 1413 DC Teaching ED 11/16 1414 Tiotropium [place] 1 PUF DAILY 11/15 1000 AC 11/16 INH 0949 Vital Signs & I&O Last 24 Hrs of Vitals and I&O: Vital Signs Date Time Temp Pulse Resp B/P Pulse O2 O2 Flow FiO2 Ox Delivery Rate 11/17 599 98.4 89 20 150/86 93 Nasal Cannula 11/16 2242 98.2 94 20 112/70 90 Nasal Cannula 11/16 1641 95 Nasal 2.0L Cannula 11/16 1429 98.2 100 20 118/70 92 Nasal 2.0L Cannula 11/16 0837 94 Nasal 2.0L Cannula Intake & Output 11/17 1600 11/17 0800 11/17 0000 Intake Total 120 Output Total Balance 120 Intake, IV 20 Intake, Oral 100 Oxygen saturation on 2 L 93% exam for chest shows diminished breath sounds there are no wheezes or crackles cardiac exam shows regular S1 and S2 without murmurs Impression/Plan Impression/Plan Impression/Plan: 70-year-old with chronic obstructive pulmonary disease oxygen dependent is admitted with an exacerbation out evidence of pneumonia or congestive heart failure. Recommendations: Transition to by mouth prednisone. Complete course of antibiotics. Patient will likely need to continue on chronic oxygen. Outpatient follow-up post discharge
--- NOTE | 2016-11-17 14:09 | Patient Discharge Instructions ---
Discharge Instructions General Discharge Information You were seen/treated for: COPD exacerbation Watch for these problems: Worsening shortness of breath, productive cough, change in color of sputum, fevers or chills Special Instructions: Please follow up with your PCP within 2 weeks of discharge. Please follow up with Dr Maurer at your next scheduled appointment. Please take all medications as directed. Diet Continue normal diet: Yes Activity Full Activity/No Limits: Yes Acute Coronary Syndrome Inclusion Criteria At DC or during hospital stay patient has or had the following: ACS DIAGNOSIS No Discharge Core Measures Meds if any: Prescribed or Continued at Discharge Meds if any: NOT Prescribed or Continued at Discharge Congestive Heart Failure Inclusion Criteria At DC or during hospital stay patient has or had the following: CHF DIAGNOSIS No Discharge Core Measures Meds if any: Prescribed or Continued at Discharge Meds if any: NOT Prescribed or Continued at Discharge Cerebrovascular accident Inclusion Criteria At DC or during hospital stay patient has or had the following: CVA/TIA Diagnosis No Discharge Core Measures Meds if any: Prescribed or Continued at Discharge Meds if any: NOT Prescribed or Continued at Discharge Venous thromboembolism Inclusion Criteria VTE Diagnosis No VTE Type NONE VTE Confirmed by (Test) NONE Discharge Core Measures - Per Current guidelines, there needs to be overlap - treatment for the first 5 days of Warfarin therapy. - If discharged on Warfarin prior to 5 days of - overlap therapy, the patient will need to be - assessed for post discharge needs including - *Post discharge parental anticoagulation - *Warfarin and/or parental anticoagulation education - *Follow up date to check INR post discharge At least 5 days overlap therapy as Inpatient No Meds if any: Prescribed or Continued at Discharge Note: Overlap Therapy is Warfarin and Anticoagulant Meds if any: NOT Prescribed or Continued at Discharge
[2016-11-17 14:56] VITALS: BP 110/70
[2016-11-17 23:51] VITALS: BP 130/80
--- NOTE | 2016-11-18 02:52 | NUR ---
PT TOOK VALIUM @ 2200, UNABLE TO GOTO SLEEP. NOTIFIED , ADMINISTERED ROZEREM. WILL CONTINUE TO MONITOR THIS SHIFT.
[2016-11-18 06:27] VITALS: BP 150/90
--- NOTE | 2016-11-18 07:00 | PN- Housestaff ---
VADIM HAWK,[facility] 11/18/16 0659: Subjective Follow-up For: coughing and SOB Subjective: I saw and examined the patient at bedside today. Patient has not been able to sleep well despite taking Valium. Reports improvement of the shortness of breath and coughing. And is willing to go home today. Review of Systems Constitutional: Denies: chills, fever, weakness. EENTM: Reports: no symptoms. Cardiovascular: Denies: chest pain, palpitations. Respiratory: Reports: cough, short of breath. Denies: sputum production. Gastrointestinal: Denies: abdominal pain, changes in stool. Genitourinary: Reports: no symptoms. Musculoskeletal: Reports: no symptoms. Skin: Reports: no symptoms. Neurological/Psychological: Reports: no symptoms. Hematologic/Endocrine: Reports: no symptoms. Objective Last 24 Hrs of Vital Signs/I&O Vital Signs Date Time Temp Pulse Resp B/P Pulse O2 O2 Flow FiO2 Ox Delivery Rate 11/18 0759 95 Nasal 2.0L Cannula 11/18 0627 97.8 85 20 150/90 95 Nasal 2.0L Cannula 11/18 0000 94 Nasal 2.0L Cannula 11/17 2351 98.2 95 20 130/80 94 Nasal 2.0L Cannula 11/17 1600 97 Nasal 2.0L Cannula 11/17 1456 96.4 100 24 110/70 92 Intake & Output 11/18 1600 11/18 0800 11/18 0000 Intake Total 250 250 Output Total Balance 250 250 Intake, IV 10 10 Intake, Oral 240 240 Physical Exam General Appearance: Alert, Oriented X3, Cooperative, No Acute Distress Skin: No Significant Lesion, psoratic skin rash on th scalp at the hair line visible in the neck. no other lesions noticed. HEENT: Atraumatic, EOMI Neck: Supple, No JVD Cardiovascular: Regular Rate, Normal S1, Normal S2, No Murmurs Lungs: Normal Air Movement, decreased breath sounds on both sides and wheezing on the left lower lung. Abdomen: Soft, No Tenderness Neurological: Normal Speech, Normal Tone Extremities: No Edema, Normal Pulses Vascular: Pulses Symmetrical Current Medications: Current Medications Sig/Polo Start time Last Medication Dose Route Stop Time Status Admin Acetaminophen 650 MG Q6P PRN 11/14 2144 AC PO Acetaminophen 1,000 MG Q6P PRN 11/14 2144 AC IV Albuterol Sulfate 3 ML EVERY 4 HRS/AWAKE 11/15 1600 AC 11/18 INH 0757 Azithromycin 250 MG DAILY 11/15 1000 AC 11/17 PO 0959 Benzonatate 100 MG TID 11/17 1100 AC 11/17 PO 2159 Diazepam 2 MG BID PRN 11/16 1530 AC 11/17 PO 2159 Enoxaparin Sodium 40 MG DAILY 11/15 1000 AC 11/17 SC 0956 Guaifenesin 600 MG Q12 PRN 11/14 2300 AC PO Ibuprofen 600 MG Q6PRN PRN 11/14 2145 AC PO Memantine 10 MG BID 11/15 1000 AC 11/17 PO 2159 Paroxetine HCl 20 MG DAILY 11/15 1000 AC 11/17 PO 0958 Prednisone 60 MG DAILY 11/17 1047 AC 11/17 PO 11/19 1001 1233 Ramelteon 8 MG ONCE ONE 11/18 0300 DC 11/18 PO 11/18 0301 0255 Tiotropium [place] 1 PUF DAILY 11/15 1000 AC 11/17 INH 0959 Assessment/Plan Assessment: This is a 70-year-old lady with a past medical history of COPD on 2 L nocturnal oxygen, psoriasis (currently not on medications) presents with signs and symptoms consistent with COPD exacerbation (increased dyspnea, increased cough, and increased sputum production). Patient does not have any recent hospitalization and last PFTs were 3 years ago. Patient vital signs are unremarkable, with labs indicating mild leukocytosis. ABG unremarkable for any hypercapnia or hypoxia. Chest x-ray is unremarkable for any acute pneumonia, but does show some bibasilar atelectasis. Assessment and plan: Acute Hypoxic respiratory failure - resolved On admission Patient endorsed increased recent use of 2 L O2 supplementation in the daytime due to increased shortness of breath. At baseline, patient only used nocturnal O2 supplementation. Most likely etiology of patient's acute hypoxic respiratory failure is her episode of acute exacerbation of COPD. The bibasilar atelectasis contribute to increased shortness of breath. Patient has been kept on 2 L oxygen per nasal cannula, she desaturates on room air at rest, this morning she was On 3 L, she had increased coughing in a.m., coughing has subsided with Tessalon, she is back to 2L in the afternoon. * Continue O2 supplementation to keep sats above 90% * Will consider tapering off O2 tomorrow based on patient tolerance * Incentive spirometry * Outpatient follow up with pulmonary Acute exacerbation of COPD Evident by increased cough, dyspnea, sputum production, improved compared to yesterday. Patient received one dose of levaquin in the ED. Plan * continue prednisone taper * continue Azithromycin 250 mg for anti-inflammatory properties * TRC /nebs * Mucinex 600 mg ER twice a day for cough /sputum, added Tessalon perles 3 times a day * Continue Spiriva * Pulmonary, Dr. Maurer is seeing the patient, appreciated recommendations. History of dementia * Continue Namenda History of depression * Continue paroxetine 20 mg Pain: tylenol (mild pp) DVT PX: [place] LOVENOX REGULAR DIET FULL CODE Problem List: 1. COPD 2. Psoriasis 3. Acute hypoxemic respiratory failure Pain Ratin Pain Location: no pain Pain Goal: Pain 4 or less Pain Plan: mild pain pathway Tomorrow's Labs & Rationales: none ERICKA FERMIN MD 11/18/16 1423: Attending MD Review Statement Attending Statement Attending MD Statement: examined this patient, discuss w/resident/PA/[employer]OBI[employer] TAILLIGHT ASSEMBLER, agreed w/resident/PA/AUTOMOBILE TAILLIGHT ASSEMBLER, reviewed EMR data (avail), discussed with nursing, discussed with case mgmt, amended to note Attending Assessment/Plan: The patient was seen and discussed with house staff. Agree with the plan of care as outlined. OK to discharge today to home with portable oxygen. Prednisone taper as per Dr. Maurer.
[2016-11-18] MEDS ORDERED: AZITHROMYCIN250 M1 PO (07:05)
[2016-11-18] MEDS ORDERED: PREDNISONE10 M2 PO (07:05)
--- NOTE | 2016-11-18 08:39 | PN- Pulmonary ---
Subjective HPI/Critical Care Issues: Patient feels well shortness of breath is improved she is now on oral prednisone Objective Current Medications: Current Medications Sig/Polo Start time Last Medication Dose Route Stop Time Status Admin Acetaminophen 650 MG Q6P PRN 11/14 2145 AC PO Acetaminophen 1,000 MG Q6P PRN 11/14 2145 AC IV Albuterol Sulfate 3 ML EVERY 4 HRS/AWAKE 11/15 1600 AC 11/18 INH 0757 Azithromycin 250 MG DAILY 11/15 1000 AC 11/17 PO 0959 Benzonatate 100 MG TID 11/17 1100 AC 11/17 PO 2159 Diazepam 2 MG BID PRN 11/16 1530 AC 11/17 PO 2159 Enoxaparin Sodium 40 MG DAILY 11/15 1000 AC 11/17 SC 0956 Guaifenesin 600 MG Q12 PRN 11/14 2300 AC PO Ibuprofen 600 MG Q6PRN PRN 11/14 2145 AC PO Memantine 10 MG BID 11/15 1000 AC 11/17 PO 2159 Paroxetine HCl 20 MG DAILY 11/15 1000 AC 11/17 PO 0958 Prednisone 60 MG DAILY 11/17 1047 AC 11/17 PO 11/19 1001 1233 Ramelteon 8 MG ONCE ONE 11/18 0300 DC 11/18 PO 11/18 0301 0255 Tiotropium [place] 1 PUF DAILY 11/15 1000 AC 11/17 INH 0959 Vital Signs & I&O Last 24 Hrs of Vitals and I&O: Vital Signs Date Time Temp Pulse Resp B/P Pulse O2 O2 Flow FiO2 Ox Delivery Rate 11/18 0759 95 Nasal 2.0L Cannula 11/18 0627 97.8 85 20 150/90 95 Nasal 2.0L Cannula 11/18 0000 94 Nasal 2.0L Cannula 11/17 2351 98.2 95 20 130/80 94 Nasal 2.0L Cannula 11/17 1600 97 Nasal 2.0L Cannula 11/17 1456 96.4 100 24 110/70 92 11/17 0853 95 Nasal 2.0L Cannula Intake & Output 11/18 1600 11/18 0800 11/18 0000 Intake Total 250 250 Output Total Balance 250 250 Intake, IV 10 10 Intake, Oral 240 240 Oxygen saturation 2 L 95%. Exam of her chest shows diminished breath sounds there are no wheezes cardiac exam shows regular S1 and S2 without murmurs. Impression/Plan Impression/Plan Impression/Plan: 70-year-old with chronic obstructive pulmonary disease oxygen dependent is admitted with an exacerbation with out evidence of pneumonia or congestive heart failure. She has clearly improved she's been counseled regarding smoking and need for outpatient follow-up Recommendations: Transition to by mouth prednisone 40 mg a day and taper by 10 mg every other day Complete course of antibiotics. Patient will likely need to continue on chronic oxygen. Outpatient follow-up post discharge
--- NOTE | 2016-11-18 09:04 | Discharge Summary ---
Visit Information Visit Dates Admission Date: 11/14/16 Discharge Date: 11/18/16 Hospital Course Course Attending Physician: ERICKA FERMIN MD Primary Care Physician: CLARISSE HOLT MD Hospital Course: Ms. Cross is a 70-year-old lady with a past medical history of COPD on 2 L nocturnal oxygen, and psoriasis (currently not on medications) who presented with worsening dyspnea, cough, and sputum production. Patient has not had any recent hospitalization and her last PFTs were 3 years ago. Her vital signs were unremarkable on admission, with labs indicating mild leukocytosis. She was saturating at 91% in RA. ABG did not show any hypercapnia or hypoxia. CXR: No evidence of pneumonia. The lungs are chronically hyperexpanded - suggestive of obstructed pulmonary disease. Bibasilar atelectasis. Patient was admitted to the general medicine floor for COPD exacerbation and the following were addressed during the hospital course: COPD exacerbation The patient reported increased recent use of O2 supplementation during the daytime due to increased shortness of breath. At baseline she only used nocturnal O2 supplementation. Most likely etiology was considered to be the acute exacerbation of COPD. She received IV solumedrol and Azithromycin as well as tiotropium and albuterol inhalers. Tessalon and mucinex were added for the coughing and increased sputum. Prednisone taper was started on 11/17/16 and will be continued with 40 mg, 30 mg, 20 mg, 10 mg, 2 days each after discharge. She also will complete a total of 5 day course of Azithromycin. Patient continued to require 2L O2 while at rest and we advised her to take O2 both during the day and at night. She has Pulse oxymetry and O2 set up at home. * She will follow up with pulmonary, Dr. Maurer in the office within a week. History of Anxiety Patient reported taking 10 mg of Valium TID for anxiety and she stopped taking it about 2-3 weeks ago when she ran out of it. Reported being anxious and not being able to sleep. She received Valium 2 mg BID PRN while in the hospital. * She has decided to see a new PCP, Dr. Amin, and will follow up with her regarding treatment for anxiety. History of dementia We continued memantine 10 mg BID. History of depression We continued paroxetine 20 mg daily. Pain: tylenol PRN (mild pain pathway) DVT PX: [place] LOVENOX REGULAR DIET FULL CODE Allergies: Coded Allergies: Cephalosporins (THINKS SHE ENDED UP IN ICU 11/14/16) Penicillins (HIVES AND RESPIRATORY DISTRESS 11/14/16) morphine (HALLUCINATIONS 11/14/16) promethazine (COMBATIVE, LETHARGIC, AMS, COMA 11/14/16) Significant Procedures: SERVICE DATE: 11/14/16-1736 EXAM TYPE: RAD - XRY-CHEST XRAY, PA AND LATERAL EXAMINATION: XR CHEST CLINICAL INFORMATION: Pneumonia. COMPARISON: CXR from 11/05/2014 TECHNIQUE: 2 views of the chest were obtained. FINDINGS: Lungs are chronically hyperinflated, suggestive of chronic obstructive pulmonary disease. There are a few linear opacities of discoid atelectasis and/or scarring within the lung bases, similar in appearance compared to 11/05/2014. No acute pulmonary consolidation or pleural effusion. The cardiac silhouette is normal in size. There is dextroscoliosis of the thoracic spine. IMPRESSION: 1. No evidence of pneumonia. 2. The lungs are chronically hyperexpanded -- suggestive of obstructed pulmonary disease. 3. Bibasilar atelectasis. DICTATED BY: NAGI FLORES MD DATE/TIME DICTATED:11/14/161838 [employer] PROFESSOR:REBECCA DATE/TIME TRANSCRIBED:11/14/161838 Pertinent Lab Results: 11/14/16 1805: Anion Gap 9, Estimated GFR > 60, BUN/Creatinine Ratio 12.9, Glucose 113 H, Calcium 9.4, Total Bilirubin 1.0, AST 17, ALT 29, Alkaline Phosphatase 122, Troponin I < 0.01, Qjd-L-Nutimexschp Pept 202 H, Total Protein 6.6, Albumin 3.5 , Globulin 3.1, Albumin/Globulin Ratio 1.1, D-Dimer 276 H, CBC w Diff NO MAN DIFF REQ, RBC 4.45, MCV 88.6, MCH 29.3, RDW 13.2, MPV 8.7, Gran % 86.1 H, Lymphocytes % 7.5 L, Monocytes % 5.4, Eosinophils % 0.6, Basophils % 0.4, Absolute Granulocytes 10.1 H, Absolute Lymphocytes 0.9 L, Absolute Monocytes 0.6, Absolute Eosinophils 0.1, Absolute Basophils 0, PUBS MCHC 33.1 11/14/16 1755: pH 7.42, pCO2 41, pO2 72 L, HCO3 26, ABG O2 Sat (Measured) 94.0 L, P-50 (Temp Corrected) Y, Carboxyhemoglobin 1.1 L, O2 Concentration % 2L, Temperature 97.1, O2 Delivery Method N/C, Phlebotomy Draw Site RIGHT RADIAL 11/16/16 0735: CBC w Diff NO MAN DIFF REQ, RBC 4.33, MCV 89.0, MCH 29.3, RDW 12.7, MPV 9.4, Gran % 90.8 H, Lymphocytes % 5.9 L, Monocytes % 3.2, Eosinophils % 0.1, Basophils % 0 L, Absolute Granulocytes 10.2 H, Absolute Lymphocytes 0.7 L, Absolute Monocytes 0.4, Absolute Eosinophils 0, Absolute Basophils 0, PUBS MCHC 32.9 L 11/17/16 0615: CBC w Diff NO MAN DIFF REQ, RBC 4.29, MCV 88.8, MCH 29.5, RDW 12.6, MPV 9.4, Gran % 83.0 H, Lymphocytes % 10.4 L, Monocytes % 6.3, Eosinophils % 0, Basophils % 0.3, Absolute Granulocytes 8.6 H, Absolute Lymphocytes 1.1 L, Absolute Monocytes 0.7 H, Absolute Eosinophils 0, Absolute Basophils 0, PUBS MCHC 33.2 Disposition Summary Disposition Principal Diagnosis: COPD exacerbation Additional Diagnosis: History of Anxiety, Dementia, Psoriasis Discharge Disposition: home or self care Discharge Instructions General Discharge Information Code Status: Full Code Patient's Diet: Regular Patient's Activity: As tolerated Follow-Up Instructions/Appts: Please follow up with your PCP within 2 weeks of discharge. Please follow up with Dr Maurer at your next scheduled appointment. Please take all medications as directed. Medications at Discharge Discharge Medications: Continue taking these medications: Albuterol Sulfate (Proair Hfa) 90 MCG HFA.AER.AD 2 Puff Inhale through mouth EVERY 4-6 HOURS NEEDED as needed for COPD/ EMPHYSEMA Qty = 9 Comments: Last Taken: NOTGIVEN Time: Albuterol Sulfate (Albuterol Sulfate) 2.5 MG/3 ML (0.083 %) VIAL.NEB 1 Vial Inhale Solution EVERY 4 HOURS NEEDED as needed for COPD/EMPHYSEMA Comments: Last Taken: 11/18/16 Time: 1100 Tiotropium [place] (Spiriva) 18 MCG CAP.W.DEV 1 Capsule Inhale through mouth DAILY Qty = 30 Comments: Last Taken:11/18/16 Time: 0915 Memantine HCl (Namenda XR) 28 MG CAP.SPR.24 1 Capsule ORAL DAILY Qty = 90 Comments: Last Taken: 11/18/16 Time: 0910 AM Buspirone HCl (Buspirone HCl) (Unknown Strength) TABLET Unknown Dose Qty = 60 Comments: Last Taken: NOT GIVEN Time: Paroxetine HCl (Paroxetine HCl) 20 MG TABLET 1 Tablet ORAL As Directed Qty = 30 Comments: Last Taken: 11/18/16 Time: 0900 AM Lidocaine HCl (Lidocaine) 5 % OINT...G. 1 Application On the skin as needed for LEG PAIN Qty = 35 Comments: Last Taken: NOT GIVEN Time: Fluticasone/Salmeterol (Advair 250-50 Diskus) 250 MCG-50 MCG/DOSE BLST.W.DEV 1 Puff Inhale through mouth TWICE DAILY Days = 30 Comments: Last Taken: NOT GIVEN Time: Start taking the following new medications: Azithromycin (Azithromycin) 250 MG TABLET 1 Tablet ORAL DAILY Qty = 2 No Refills Prednisone (Prednisone) 10 MG TABLET 1 Tablet ORAL As Directed Qty = 20 No Refills Instructions: On Take 11/19-11/20 40 MG 11/21-11/22 30 MG 11/23-11/24 20 MG 11/25-11/26 10 MG Then stop Azithromycin (Azithromycin) 250 MG TABLET 1 Tablet ORAL DAILY Qty = 2 No Refills Prednisone (Prednisone) 10 MG TABLET 1 Tablet ORAL As Directed Qty = 20 No Refills Instructions: On Take 11/19-11/20 40 MG 11/21-11/22 30 MG 11/23-11/24 20 MG 11/25-11/26 10 MG Then stop Diazepam (Valium) 2 MG TABLET 1 Tablet ORAL TWICE DAILY as needed for anxiety/insomnia Qty = 20 No Refills Comments: Last Taken: 11/17/16 Time: 10 PM Copies To: MANUEL HAWK,CODI Hendrix; SAÚL HAWK,MONET; YANET HAWK,CLARISSE Benavides MD Review Statement Documenting Attending: ERICKA FERMIN MD Other Findings: The patient was seen and discussed with house staff. Agree with plan of care upon discharge. Copies To: MANUEL HAWK,CODI Hendrix; SAÚL HAWK,MELVIN HOLT MD,CLARISSE Martinez Attending MD Review Statement Documenting Attending: ERICKA FERMIN MD
[2016-11-18] MEDS ORDERED: VALIUM2 M1 PO (09:05)
--- NOTE | 2016-11-18 10:55 | NUR ---
PT ON 2L NC SITTING @ 97%, SITTING ON RA O2 @ 91%, O2 ON RA W/ AMBULATION 86%, AMBULATION WITH 2L NC O2 @ 87%.
--- NOTE | 2016-11-18 12:27 | NUR ---
AMBULATED PT ON 2L NC, O2 @ 91%.
[2016-11-18 15:28] VITALS: BP 108/80
== END 2016-11-18 17:00 | disposition home health service (06) | DRG 190 ==
LOC: ENRESERVDT → ENRESERVTM → ERH 16:44 → ERHI 19:24 → ENPENDDIS 19:24 → 2NA 19:24 → EDBEDREQ 20:02 → 2NA 22:18
PROVIDERS: Ophthalmology; Physician Assistant; Student in an Organized Health Care Education/Training Program; ADMIT Student in an Organized Health Care Education/Training Program
DX: J44.1 Chronic obstructive pulmonary disease with (acute) exacerbation (principal); J96.21 Acute and chronic respiratory failure with hypoxia; F03.90 Unspecified dementia, unspecified severity, without behavioral disturbance, psychotic disturbance, mood disturbance, and anxiety; J98.11 Atelectasis; Z99.81 Dependence on supplemental oxygen; I10 Essential (primary) hypertension; M19.90 Unspecified osteoarthritis, unspecified site; F41.8 Other specified anxiety disorders; Z87.891 Personal history of nicotine dependence
CPT/HCPCS: 2NASP; 36415; 81001; 82436; 87040; 87804; 87804-59; 93005; 93010; J0456; J1650; J2920; J2930

== ENCOUNTER 2018-02-13 13:45 | Inpatient (IN) | payer OTHER, MEDICARE ==
[~2018-02-13] VITALS: Ht 160 cm; Wt 63.5 kg
[~2018-02-13 13:45] MED LIST changes: +ADVAIR 250-501 EACH INH; +ALBUTEROL2.5 MG/3 M INH/SOL; +AZITHROMYCIN250 M1 PO; +BUSPIRONE HCL15 M1; +LIDOCAINE35.44 GM TOP; +NAMENDA XR28 M1 PO; +PAROXETINE HCL20 M1 PO; +PREDNISONE10 M2 PO; +PROAIR HFA8.5 GM INH; +SPIRIVA18 MCG INH; +VALIUM2 M1 PO
--- NOTE | 2018-02-13 13:58 | ED DYSPNEA/ASTHMA COMPLAINT ---
History of Present Illness General Chief Complaint: Dyspnea (COPD, CHF, Other) Stated Complaint: INCREASED SOB Source: patient, old records Exam Limitations: no limitations Vital Signs & Intake/Output Vital Signs & Intake/Output Vital Signs Date Time Temp Pulse Resp B/P B/P Pulse O2 O2 Flow FiO2 Mean Ox Delivery Rate 02/13 1543 93 Nasal 2.5L Cannula 02/13 1358 95 Nasal 2.0L Cannula 02/13 1346 98.6 104 22 134/61 96 T Piece 5.0L Allergies Coded Allergies: Cephalosporins (THINKS SHE ENDED UP IN ICU 11/14/16) Penicillins (HIVES AND RESPIRATORY DISTRESS 11/14/16) morphine (HALLUCINATIONS 11/14/16) promethazine (COMBATIVE, LETHARGIC, AMS, COMA 11/14/16) Reconcile Medications Albuterol Sulfate (Proair Hfa) 90 MCG HFA.AER.AD 2 PUF INH Q4-6 PRN PRN COPD/ EMPHYSEMA (Reported) Albuterol Sulfate 2.5 MG/3 ML (0.083 %) VIAL.NEB 1 Vial INH/JENNY Q4P PRN COPD/ EMPHYSEMA (Reported) Diazepam (Valium) 2 MG TABLET 1 TAB PO BID PRN anxiety/insomnia Fluticasone/Salmeterol (Advair 250-50 Diskus) 250 MCG-50 MCG/DOSE BLST.W.DEV 1 PUF INH BID COPD/EMPHYSEMA (Reported) Ipratropium/Albuterol Sulfate (Iprat-Albut 0.5-3(2.5) MG/3 Ml) 0.5 MG-3 MG (2.5 MG BASE)/3 ML AMPUL.NEB 1 UNIT PO BREATHING PROBLEMS (Reported) Lidocaine HCl (Lidocaine) 5 % OINT...G. 1 RICHARD TOP PRN LEG PAIN (Reported) Memantine HCl (Namenda XR) 28 MG CAP.SPR.24 1 CAP PO DAILY MEMORY (Reported) Paroxetine HCl 20 MG TABLET 1 TAB PO AD MENTAL HEALTH (Reported) Ropinirole HCl 1 MG TABLET 1-2 TAB PO QPM RESTLESS LEGS (Reported) Tiotropium [place] (Spiriva) 18 MCG CAP.W.DEV 1 CAP INH DAILY COPD/EMPHYSEMA (Reported) Triage Note: 72 YEAR OLD FEMALE HISTORY OF COPD REPORTS INCREASED SOB PAST 2-3 DAYS. PT REPORTS SYMPTOMS WERE WORSE TODAY WITH NO RELIEF FROM DUO-NEB. PT IS O2 DEPENDENT AT HOME ON 2L. EMS REPORTS WHEN THEY GOT ON SCENE PT WAS ON ROOM AIR SATTING AT 85%. WHEN PLACED ON NASAL CANNULA SATS INCREASED TO 91%. MEDIC ADMINISTERED IV SOLUMEDROL AND DUONEB. PT ARRIVES TO ED ALERT AND ORIENTED X3, CLEAR SPEECH, PRODUCTIVE COUGH. PT DOES NOT APPEAR TO BE IN ANY DISTRESS AT THIS TIME. 02 SAT 95-96% WITH DUONEB FINISHING AT THIS TIME. Triage Nurses Notes Reviewed? yes Onset: Gradual Duration: getting worse Timing: recent history Severity: moderate HPI: Patient is a 72-year-old female with a past medical history of COPD currently on 2 L of home O2 at all times and psoriasis not currently taking medications for, anxiety and dementia who presents emergency room with daughter and which she lives in a private residence with the patient where they have been complaining of a one-week history of worsening shortness of breath and dyspnea on exertion and cough however and the past 2 days symptoms are significantly worsened. Patient denies any fever chills chest pain arm pain jaw pain like swelling hemoptysis. Patient has been taking Tessalon Perles and albuterol nebulizer machines at home with mild relief of symptoms. Patient also states that she has mild nausea with coughing episodes. Patient was brought in by ambulance after being evaluated by primary care doctor for concerns of COPD exacerbation Patient received IV Solu-Medrol prior to arrival VIA EMS (Abran Alfaro) Past History Travel History Traveled to [place] past 21 day No Medical History Any Pertinent Medical History? see below for history Neurological: restless leg syndrome EENT: NONE Cardiovascular: hypertension Respiratory: bronchitis, COPD, pneumonia Gastrointestinal: NONE Hepatic: NONE Renal: NONE Musculoskeletal: ARTHRISTIS Psychiatric: depression Endocrine: NONE Blood Disorders: NONE Cancer(s): NONE RELIEF MANAGER/Reproductive: NONE History of MRSA: No History of VRE: No History of CDIFF: No Influenza Vaccine: 07/13/16 Surgical History Surgical History: SURGERY TO L ELB[place] TITANIUM IN L ELBOW Psychosocial History Who do you live with Daughter Services at Home None What is your primary language Beninese Tobacco Use: Quit >30 days ago Family History Family History, If Any: SISTER (lupus). DAUGHTER (lupus). FATHER (lung cancer). Hx Contributory? No (Abran Alfaro) Review of Systems Review of Systems Constitutional: Reports: no symptoms. EENTM: Reports: no symptoms. Respiratory: Reports: see HPI, cough, short of breath. Cardiovascular: Reports: no symptoms. GI: Reports: no symptoms. Genitourinary: Reports: no symptoms. Musculoskeletal: Reports: no symptoms. Skin: Reports: no symptoms. Neurological/Psychological: Reports: no symptoms. Hematologic/Endocrine: Reports: no symptoms. Immunologic/Allergic: Reports: no symptoms. All Other Systems: Reviewed and Negative (Abran Alfaro) Physical Exam Physical Exam General Appearance: no apparent distress, alert, thin Head: atraumatic Eyes: Bilateral: normal appearance, PERRL. Ears, Nose, Throat: normal pharynx, normal ENT inspection Neck: normal inspection, supple Respiratory: no respiratory distress, quiet respiration, decreased breath sounds Cardiovascular: tachycardia Gastrointestinal: normal bowel sounds, soft Neurologic/Psych: no motor/sensory deficits, awake, alert Skin: intact, normal color, warm/dry Core Measures ACS in differential dx? Yes CVA/TIA Diagnosis No Sepsis Present: No Sepsis Focused Exam Completed? No (Abran Alfaro) Progress Differential Diagnosis: asthma, AMI, bronchitis, costochondritis, CHF, COPD, musculoskeletal pain, pericarditis, pulmonary embolism, pneumonia, pneumothorax, rib fracture, unstable angina Plan of Care: Orders Procedure Date/time Status Heart Healthy Diet 02/13 D Active Patient Data 02/13 1538 Active ED Holding Orders 02/13 1534 Active Admit to inpatient 02/13 1534 Active Code Status 02/13 1534 Active URINALYSIS 02/13 1522 Active TROPONIN LEVEL 02/13 1407 Complete COMPREHENSIVE METABOLIC PANEL 02/13 1407 Complete CBC WITHOUT DIFFERENTIAL 02/13 1407 Complete EKG 02/13 1407 Active Intake & Output 02/13 1356 Active Current Medications Sig/Polo Start time Last Medication Dose Stop Time Status Admin Methylprednisolone 125 MG ONCE ONE 02/13 1415 CAN (Solu Medrol) 02/13 1416 Laboratory Tests 02/13/18 1442: Anion Gap 11, Estimated GFR > 60, BUN/Creatinine Ratio 18.3, Glucose 138 H, Calcium 8.9, Total Bilirubin 0.9, AST 21, ALT 22, Alkaline Phosphatase 114, Troponin I < 0.01, Total Protein 6.6, Albumin 3.5, Globulin 3.1, Albumin/ Globulin Ratio 1.1, CBC w Diff MAN DIFF ORDERED, RBC 4.27, MCV 88.3, MCH 30.1, MCHC 34.1, RDW 12.6, MPV 8.6, Gran % 92.3 H, Lymphocytes % 3.4 L, Monocytes % 4.3, Eosinophils % 0, Basophils % 0, Absolute Granulocytes 11.6 H, Absolute Lymphocytes 0.4 L, Absolute Monocytes 0.5, Absolute Eosinophils 0, Absolute Basophils 0, Platelet Estimate VERIFIED BY SMEAR, Normocytic RBCs VERIFIED, Normochromic RBCs VERIFIED Patient shows no respiratory distress on arrival 2 L of oxygen supplementation noted 94% oxygen saturation Patient is alert and oriented Patient was given a 1 hour high flow nebulizer for improvement of aeration Reevaluation she had noted audible wheezing Patient will be admitted for concerns of COPD discussed disposition plan with patient and family members were aware and agree Diagnostic Imaging: Viewed by Me: Radiology Read. CXR Impression: SEE COMMENTS Initial ED EK BPM,SINUS TACHYCARDIA Comments: PATIENT: LINDA MARTINES PRESENT AGE: 72 PATIENT ACCOUNT NO: [id number] : 46 LOCATION: [facility] ORDERING PHYSICIAN: Abran LOUIE SERVICE DATE: 02/13/18 EXAM TYPE: RAD - XRY-CHEST XRAY, TWO VIEWS EXAMINATION: CHEST 2 VIEWS CLINICAL INFORMATION: Cough, shortness of breath. COPD. COMPARISON: 04/22/2017. TECHNIQUE: PA and lateral views of the chest were obtained. FINDINGS: The cardiac silhouette is not enlarged. The mediastinal and hilar contours are unremarkable. There are neither pleural effusions nor pneumothoraces. There are no consolidations. The lungs are hyperinflated. The osseous structures are stable. IMPRESSION: No evidence for acute disease. Lung hyperinflation. DICTATED BY: Clement Bowers MD DATE/TIME DICTATED:02/13/181426 SR. OPERATIONS MANAGER:REBECCA DATE/TIME TRANSCRIBED:02/13/181426 (Abran Alfaro) Departure Departure Disposition: STILL A PATIENT Condition: Stable Clinical Impression Primary Impression: COPD exacerbation Secondary Impressions: Bronchitis Referrals: Natalia Amin MD (PCP/Family) Departure Forms: Customer Survey General Discharge Information Admission Note Spoke With: Edgar Ram MD Documentation of Exam: Documentation of any treatments & extenuating circumstances including Concerns Regarding Discharge (functional status, medication knowledge or non-compliance, living conditions, etc.) that warrant an admission rather than observation: [ Patient requires pulmonary consultation IV steroids antibiotics antitussives and continuous nebulizers for failed up OUTPATIENT treatment of COPD and COPD exacerbation upon admission.] (Abran Alfaro) PA/GAS SHOVEL OPERATOR Co-Sign Statement Statement: ED Attending supervision documentation- [X] I saw and evaluated the patient. I have also reviewed all the pertinent lab results and diagnostic results. I agree with the findings and the plan of care as documented in the PA's/GAS SHOVEL OPERATOR's documentation. [] I have reviewed the ED Record and agree with the PA's/GAS SHOVEL OPERATOR's documentation. [] Additions or exceptions (if any) to the PAs/GAS SHOVEL OPERATOR's note and plan are summarized below: [] (Reji Bentley DO) Critical Care Note Critical Care Note Critical Care Time: 30-74 min (Abran Alfaro) Critical Care Time: 30-74 min (Abran Alfaro)
--- NOTE | 2018-02-13 14:36 | RADIOLOGY REPORT ---
EXAMINATION: CHEST 2 VIEWS CLINICAL INFORMATION: Cough, shortness of breath. COPD. COMPARISON: 04/22/2017. TECHNIQUE: PA and lateral views of the chest were obtained. FINDINGS: The cardiac silhouette is not enlarged. The mediastinal and hilar contours are unremarkable. There are neither pleural effusions nor pneumothoraces. There are no consolidations. The lungs are hyperinflated. The osseous structures are stable. IMPRESSION: No evidence for acute disease. Lung hyperinflation.
[2018-02-13] MEDS ORDERED: ROPINIROLE HCL1 MG PO (14:50)
[2018-02-13] MEDS ORDERED: IPRAT-ALBUT 0.5-3 ML PO (14:51)
[2018-02-13 14:54] LABS: ABSOLUTE BASOPHIL COUNT 0 /CUMM (0.0-0.2); ABSOLUTE EOSINOPHIL COUNT 0 /CUMM (0.0-0.7); ABSOLUTE GRANULOCYTE CT 11.6 /CUMM (1.4-6.5); ABSOLUTE LYMPH COUNT 0.4 /CUMM (1.2-3.4); ABSOLUTE MONOCYTE COUNT 0.5 /CUMM (0.10-0.60); BASOPHIL % 0 % (0.0-2.0); EOSINOPHIL % 0 % (0-5); HEMATOCRIT 37.7 % (37-47); MEAN CORPUSCULAR HGB 30.1 PG (27.0-31.0); MEAN CORPUSCULAR HGB CONC 34.1 G/DL (33.0-37.0); MEAN CORPUSCULAR VOLUME 88.3 FL (81.0-99.0); MEAN PLATELET VOLUME 8.6 FL (7.4-10.4); PLATELET COUNT 247 /CUMM (130-400); RBC DISTRIBUTION WIDTH 12.6 % (11.5-14.5); RED BLOOD CELL CT 4.27 /CUMM (4.20-5.40); WHITE BLOOD CELL COUNT 12.6 /CUMM (4.8-10.8)
[2018-02-13 14:58] LABS: GRANULOCYTE % 92.3 % (42.2-75.2)
--- NOTE | 2018-02-13 17:01 | History & Physical ---
Vannessa Trejo MD 02/13/18 1701: General Information and HPI MD Statement: I have seen and personally examined LINDA CROSS and documented this H&P. The patient is a 72 year old F who presented with a patient stated chief complaint of shortness of breath and productive cough Source of Information: patient, old records Exam Limitations: no limitations History of Present Illness: This is a 72-year-old female with a past medical history significant for hypertension, restless leg syndrome, COPD that comes to the ED for shortness of breath and cough productive of thick yellow sputum of 4 days' duration. The patient notes that the shortness of breath is worsening. She usually uses 2 L oxygen during day and night. She also uses inhalers which she has taken more often due to this recent tautness of breath. Apparently the patient went to her PCPs office, Natalia Amin MD, today for her shortness of breath who instructed her to come straight to the ED. The patient denies any chest pain, chills, rigors, fevers. She did note a "flash" of nausea but has not vomited. The patient has not eaten since yesterday. The patient has a dog and cat but denies any allergies. She has good compliance with her medications. No sick contacts and no travel recently. No periods of sitting still for a long time, the patient ambulates on her own without assistance. 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 The patient denies heart problems. She had an echo "a while back" and a stress test that were both reportedly normal. The patient does not have a centrex radio operator. The patient notes that she has felt weak since the beginning of this illness but has not fallen. Allergies/Medications Allergies: Coded Allergies: Cephalosporins (THINKS SHE ENDED UP IN ICU 11/14/16) Penicillins (HIVES AND RESPIRATORY DISTRESS 11/14/16) morphine (HALLUCINATIONS 11/14/16) promethazine (COMBATIVE, LETHARGIC, AMS, COMA 11/14/16) Compliance With Home Meds: GOOD Past History Travel History Traveled to [place] past 21 day No Medical History Neurological: restless leg syndrome EENT: NONE Cardiovascular: hypertension Respiratory: bronchitis, COPD, pneumonia Gastrointestinal: NONE Hepatic: NONE Renal: NONE Musculoskeletal: ARTHRISTIS Psychiatric: depression Endocrine: NONE Blood Disorders: NONE Cancer(s): NONE LEGAL BILLING CLERK/Reproductive: NONE History of MRSA: No History of VRE: No History of CDIFF: No Influenza Vaccine: 07/13/16 Surgical History Surgical History: SURGERY TO L ELBOW TITANIUM IN L EL[place] Past Family/Social History Family History Relations & Conditions if any SISTER (lupus). DAUGHTER (lupus). FATHER (lung cancer). Psychosocial History Services at Home: None Review of Systems Review of Systems Constitutional: Reports: weakness. EENTM: Reports: no symptoms. Cardiovascular: Reports: no symptoms. Respiratory: Reports: cough, short of breath, sputum production. GI: Reports: nausea. Genitourinary: Reports: no symptoms. Musculoskeletal: Reports: no symptoms. Skin: Reports: no symptoms. Neurological/Psychological: Reports: no symptoms. Hematologic/Endocrine: Reports: no symptoms. Exam & Diagnostic Data Last 24 Hrs of Vital Signs/I&O Vital Signs Date Time Temp Pulse Resp B/P B/P Pulse O2 O2 Flow FiO2 Mean Ox Delivery Rate 02/13 1702 97.2 114 20 96/54 92 Nasal 3.0L Cannula 02/13 1543 93 Nasal 2.5L Cannula 02/13 1358 95 Nasal 2.0L Cannula 02/13 1346 98.6 104 22 134/61 96 T Piece 5.0L Intake & Output 02/13 1600 02/13 0800 02/13 0000 Intake Total Output Total Balance Patient 140 lb Weight Weight Reported by Patient Measurement Method Physical Exam General Appearance Alert, Oriented X3, Cooperative, No Acute Distress Skin No Rashes, No Breakdown, No Significant Lesion Sepsis Skin Exam (color): Normal for Ethnicity Cardiovascular Regular Rate, Normal S1, Normal S2, No Murmurs Lungs patient has lower lung field wheezes, no rales or crackles Abdomen Normal Bowel Sounds, Soft, No Tenderness Neurological Normal Speech Extremities No Clubbing, No Cyanosis, No Edema Last 24 Hrs of Labs/Angelito: Laboratory Tests 02/13/18 1651: Urine Color YEL, Urine Clarity CLEAR, Urine pH 6.0, Ur Specific [place] >= 1.030 , Urine Protein 30 H, Urine Ketones 40 H, Urine Nitrite NEG, Urine Bilirubin NEG@ICTO, Urine Urobilinogen 2.0 H, Ur Leukocyte Esterase NEG, Ur Microscopic SEDIMENT EXAMINED, Urine RBC 1-3, Urine WBC 3-5 H, Ur Epithelial Cells FEW, Urine Bacteria MANY H, Urine Mucus FEW, Urine Hemoglobin TRACE-INTACT, Urine Glucose NEG 02/13/18 1442: Anion Gap 11, Estimated GFR > 60, BUN/Creatinine Ratio 18.3, Glucose 138 H, Calcium 8.9, Magnesium 2.0, Total Bilirubin 0.9, AST 21, ALT 22, Alkaline Phosphatase 114, Troponin I < 0.01, Total Protein 6.6, Albumin 3.5, Globulin 3.1 , Albumin/Globulin Ratio 1.1, CBC w Diff MAN DIFF ORDERED, RBC 4.27, MCV 88.3, MCH 30.1, MCHC 34.1, RDW 12.6, MPV 8.6, Gran % 92.3 H, Lymphocytes % 3.4 L, Monocytes % 4.3, Eosinophils % 0, Basophils % 0, Absolute Granulocytes 11.6 H, Absolute Lymphocytes 0.4 L, Absolute Monocytes 0.5, Absolute Eosinophils 0, Absolute Basophils 0, Platelet Estimate VERIFIED BY SMEAR, Normocytic RBCs VERIFIED, Normochromic RBCs VERIFIED Assessment/Plan Assessment: This is a 72-year-old female with a past medical history significant for hypertension, restless leg syndrome, COPD that comes to the ED for shortness of breath and cough productive of thick yellow sputum of 4 days' duration. The patient usually uses 2 L of oxygen day and night. She sees Dr. Aldana as her sand slinger operator. In the ED, EKG showed a rate of 107 with a QTC of 475, unchanged from before. Vital signs were significant for oxygen at a flow rate of 5 with 96% saturation, tachycardia to 104, afebrile. At the time of interview, oxygen was decreased to 3 L flow rate with nasal cannula. Blood pressure was 96/54. Patient continued to be afebrile. WBC was elevated at 12.6, potassium low at 3.3, all other labs normal. Chest x-ray showed no evidence of acute disease but lung hyperinflation. Patient appears to be having acute exacerbation of COPD secondary to probable viral syndrome. She has no consolidation on x-ray so pneumonia is unlikely. We will treat the patient for an acute COPD exacerbation. Plan Solu-Medrol 40 q12 Azithromycin for 5 days TRC nebs and pulmonary consult with Dr. Aldana Please potassium with K Dur Mucinex as needed Continue home medications Fall precautions as patient stated that she feels weak Regular diet DT prophylaxis with pharm and Alps Patient is full code As Ranked By This Provider Problem List: 1. COPD Core Measures/Misc (05/29) Acute Coronary Syndrome ACS Diagnosis: No Congestive Heart Failure Congestive Heart Failure Diagnosis No Cerebrovascular Accident CVA/TIA Diagnosis: No VTE (View Protocol) VTE Risk Factors Acute Medical Illness No Mechanical VTE Prophylaxis d/t N/A MechProphylax Ordered No VTE Pharm Prophylaxis d/t NA PharmProphylax ordered Sepsis (View protocol) Sepsis Present: No If YES complete Sepsis Event Note If YES complete Sepsis Event Note Edgar Ram 02/13/18 1721: General Information and HPI Allergies/Medications Home Med list Albuterol Sulfate (Proair Hfa) 90 MCG HFA.AER.AD 2 PUF INH Q4-6 PRN PRN COPD/ EMPHYSEMA (Reported) Albuterol Sulfate 2.5 MG/3 ML (0.083 %) VIAL.NEB 1 Vial INH/JENNY Q4P PRN COPD/ EMPHYSEMA (Reported) Azithromycin 500 MG TABLET 1 TAB PO DAILY BRONCHITIS Diazepam (Valium) 2 MG TABLET 1 TAB PO BID PRN anxiety/insomnia Fluticasone/Salmeterol (Advair 250-50 Diskus) 250 MCG-50 MCG/DOSE BLST.W.DEV 1 PUF INH BID COPD/EMPHYSEMA (Reported) Ipratropium/Albuterol Sulfate (Iprat-Albut 0.5-3(2.5) MG/3 Ml) 0.5 MG-3 MG (2.5 MG BASE)/3 ML AMPUL.NEB 1 UNIT PO BREATHING PROBLEMS (Reported) Lidocaine HCl (Lidocaine) 5 % OINT...G. 1 RICHARD TOP PRN LEG PAIN (Reported) Memantine HCl (Namenda XR) 28 MG CAP.SPR.24 1 CAP PO DAILY MEMORY (Reported) Paroxetine HCl 20 MG TABLET 1 TAB PO AD MENTAL HEALTH (Reported) Prednisone 10 MG TABLET 1 TAB PO AD TAPER TAKE 4TABS X 2DAYS, 3TABS X3DAYS, 2TABS X3DAYS, 1TAB X3DAYS Ropinirole HCl 1 MG TABLET 1-2 TAB PO QPM RESTLESS LEGS (Reported) Tiotropium [place] (Spiriva) 18 MCG CAP.W.DEV 1 CAP INH DAILY COPD/EMPHYSEMA (Reported) Core Measures/Misc (05/29) Sepsis (View protocol) If YES complete Sepsis Event Note If YES complete Sepsis Event Note Attending MD Review Statement Attending Statement Attending MD Statement: examined this patient, discuss w/resident/PA/TRANSMISSION CALIBRATION ENGINEER, agreed w/resident/PA/TRANSMISSION CALIBRATION ENGINEER, discussed with family, reviewed EMR data (avail) Attending Assessment/Plan: 72-year-old female with past medical history of smoking which she quit about 20 years ago, COPD on home oxygen at 2 L by nasal cannula went to her PCP office with chief complaint of shortness of breath and cough for the last 4 days despite using nebulizers at home. Patient was 92% on nasal cannula at home but when she went to the PCP office she forgot to take the oxygen tank that was full and by mistake took the empty tank and her oxygen saturation was 78% on room air at PCP office. Patient was sent to the emergency room and was given IV Solu- Medrol and is being admitted for acute COPD exacerbation. Acute COPD exacerbation in patient with chronic hypoxic respiratory failure-we will admit her to medicine and start her on IV steroids at 40 mg IV every 12 hours. We will continue her on nebulizer treatments and will get a respiratory consult. Patient lives with her daughter and the plan was discussed with patient as well as patient's daughter. Shahid Pretty 02/13/18 1855: Core Measures/Misc (05/29) Sepsis (View protocol) If YES complete Sepsis Event Note If YES complete Sepsis Event Note Resident Review Statement Other Findings: Ms. Cross is a 72 year old female with past medical history of COPD on 2 L of home oxygen [followed by Dr. Maurer], mild cognitive impairment, and restless leg syndrome. She presents to the [facility] emergency department with complaints of dyspnea. She had presented to her primary care physician's office , Dr. Amin, for evaluation of her dyspnea and was found to be hypoxemic in the 70s. Of note the patient had forgot her oxygen tank at home. Patient states she had a cough for 4 days, productive sputum. She denies any chest pain, palpitations, lightheadedness, fever, chills, riders. She denies abdominal pain, nausea, vomiting, diarrhea, constipation. She denies any recent travel, presyncopal/syncopal episodes, lower extremity edema. She denies sick contacts. Vitals in the emergency department temperature 98.6, pulse rate 104, respiratory rate 22, blood pressure 134/61 saturating 96% on 5 L of oxygen. Physical exam as dictated above with note of decreased air entry bilaterally. Labs as dictated above, overall unremarkable, white blood cell count 12.6, potassium 3.3, glucose 138. Chest x-ray showed no acute pathology however demonstrated hyperinflation Problem list assessment and plan COPD exacerbation * Admit to gen med * TRC/Nebs with insentive spirometry * Consider sputum cultures. * IV Zithro for anti-inflamatory properties - 500 IV daily * Solumedrol 40 q12, with plans to titrate to PO prednisone taper * Mucinex 600mg BID * continue O2 via nasal canula, and titrate down as tolerated with a goal oxygen saturation of greater than 92% * Please consult Dr. Maurer in the am. Chronic medical problems * Continue the patients home medications as ordered. FC Heart Healthy diet as tolerated ALPS for DVT ppx (Phil score 2, pharm dvt ppx not indicated) Pain path as ordered
--- NOTE | 2018-02-13 17:21 | Admission Certification ---
Admission Certification Certification Statement - As attending physician, I certify that at the time of - admission, based on clinical presentation, severity of - symptoms, need for further diagnostic testing and - therapeutic interventions, and risk of adverse outcomes - without in-hospital treatment, in my clinical assessment, - this patient requires an acute hospital stay for a minimum - of two nights or longer. I have also considered psychsocial - factors such as support system, advanced age, financial - issues, cognitive issues, and failed out-patient treatments, - past re-admission history, safety of patient, and lack of - compliance as applicable. Specific rationale supporting this admission is: acute copd exacerbation
[2018-02-13 22:32] VITALS: BP 131/69
[2018-02-14 05:53] VITALS: BP 160/89
[2018-02-14 08:32] LABS: ABSOLUTE BASOPHIL COUNT 0 /CUMM (0.0-0.2); ABSOLUTE EOSINOPHIL COUNT 0 /CUMM (0.0-0.7); ABSOLUTE LYMPH COUNT 0.4 /CUMM (1.2-3.4); ABSOLUTE MONOCYTE COUNT 0.2 /CUMM (0.10-0.60); BASOPHIL % 0 % (0.0-2.0); EOSINOPHIL % 0 % (0-5); MEAN CORPUSCULAR HGB 30.1 PG (27.0-31.0); MEAN CORPUSCULAR HGB CONC 33.6 G/DL (33.0-37.0); MEAN CORPUSCULAR VOLUME 89.7 FL (81.0-99.0); MEAN PLATELET VOLUME 9.6 FL (7.4-10.4); PLATELET COUNT 259 /CUMM (130-400); RBC DISTRIBUTION WIDTH 12.9 % (11.5-14.5); RED BLOOD CELL CT 4.24 /CUMM (4.20-5.40); WHITE BLOOD CELL COUNT 11.6 /CUMM (4.8-10.8)
--- NOTE | 2018-02-14 08:33 | PN- Housestaff ---
Marsha HAWK,Maciel 02/14/18 0833: Subjective Follow-up For: copd exacerbation Subjective: still complaining of significant dyspnea and cough afebrile obtained sputum specimen Review of Systems Constitutional: Reports: see HPI. Objective Last 24 Hrs of Vital Signs/I&O Vital Signs Date Time Temp Pulse Resp B/P B/P Pulse O2 O2 Flow FiO2 Mean Ox Delivery Rate 02/14 1018 Nasal 2.0L Cannula 02/14 0845 95 Nasal 2.0L Cannula 02/14 0800 Nasal 2.0L Cannula 02/14 0553 98.0 100 22 160/89 95 Nasal 2.0L Cannula 02/14 0000 92 Nasal 2.0L Cannula 02/13 2232 97.9 103 20 131/69 93 Nasal 2.0L Cannula 02/13 2129 98.7 89 18 130/70 94 Nasal 3.0L Cannula 02/13 1855 96.8 108 18 131/68 93 Nasal 3.0L Cannula 02/13 1702 97.2 114 20 96/54 92 Nasal 3.0L Cannula 02/13 1543 93 Nasal 2.5L Cannula 02/13 1358 95 Nasal 2.0L Cannula 02/13 1346 98.6 104 22 134/61 96 T Piece 5.0L Intake & Output 02/14 1600 02/14 0800 02/14 0000 Intake Total 130 Output Total Balance 130 Intake, IV 10 Intake, Oral 120 Patient 63.503 kg Weight Physical Exam General Appearance: Alert, Oriented X3, Cooperative, No Acute Distress, on 2L NC Cardiovascular: Regular Rate, Normal S1, Normal S2, No Murmurs Lungs: significantly limited airmovement, diffuse expiratory wheezing Abdomen: Normal Bowel Sounds, Soft, No Tenderness, No Masses Extremities: No Clubbing, No Cyanosis, No Edema, Normal Pulses, No Tenderness/ Swelling Current Medications: Current Medications Sig/Polo Start time Last Medication Dose Route Stop Time Status Admin Acetaminophen 650 MG ONCE ONE 02/14 0945 DC PO 02/14 0946 Albuterol Sulfate 3 ML EVERY 4 HRS/AWAKE 02/14 1200 AC 02/14 INH 1152 Albuterol Sulfate 2 PUF Q4-6 PRN PRN 02/13 1800 AC INH Albuterol Sulfate 3 ML Q4P PRN 02/13 1800 DC 02/14 INH 0851 Albuterol Sulfate 18 ML ONCE ONE 02/13 1415 DC 02/13 INH 02/13 1416 1530 Azithromycin 500 MG Q24H 02/14 1700 AC Sodium Chloride 250 ML IV Azithromycin 500 MG ONCE ONE 02/13 1415 DC 02/13 Sodium Chloride 250 ML IV 02/13 1514 1707 Budesonide/ 2 PUF BID 02/13 2100 AC Formoterol Fumarate INH Diazepam 2 MG BID PRN 02/13 1800 AC PO Guaifenesin 600 MG Q12 02/13 2100 AC 02/14 PO 0944 Memantine 10 MG BID 02/13 2100 AC PO Methylprednisolone 40 MG Q12 02/13 2100 AC 02/14 IV 0944 Methylprednisolone 40 MG Q8 02/13 1752 DC IV Methylprednisolone 125 MG ONCE ONE 02/13 1415 CAN IV 02/13 1416 Ondansetron HCl 4 MG ONCE ONE 02/14 0015 DC 02/14 IV 02/14 0016 0018 Ondansetron HCl 4 MG ONCE ONE 02/13 2345 CAN PO 02/13 2346 Ondansetron HCl 4 MG .STK-MED ONE 02/13 2340 DC IM 02/13 2341 Paroxetine HCl 20 MG DAILY 02/14 09 AC 02/14 PO 0944 Patient Medication 1 ED ONE ONE 02/14 0945 DC Teaching ED 02/14 0946 Potassium Chloride 0 .STK-MED ONE 02/13 2126 DC PO Potassium Chloride 40 MEQ ONCE ONE 02/13 1800 DC 02/13 PO 02/13 1801 2121 Ropinirole HCl 1 MG QPM 02/13 2100 AC PO Tiotropium [place] 1 PUF DAILY 02/14 09 AC 02/14 INH 0945 Trimethobenzamide HCl 200 MG 0700 02/14 07 DC 02/14 IM 02/14 0701 0736 Last 24 Hrs of Lab/Angelito Results Last 24 Hrs of Labs/Mics: Laboratory Tests 02/14/18 0610: Anion Gap 12, Estimated GFR > 60, BUN/Creatinine Ratio 21.7, CBC w Diff NO MAN DIFF REQ, RBC 4.24, MCV 89.7, MCH 30.1, MCHC 33.6, RDW 12.9, MPV 9.6, Gran % 94.6 H, Lymphocytes % 3.8 L, Monocytes % 1.6 L, Eosinophils % 0, Basophils % 0, Absolute Granulocytes 11.0 H, Absolute Lymphocytes 0.4 L, Absolute Monocytes 0.2, Absolute Eosinophils 0, Absolute Basophils 0 02/13/18 1651: Urine Color YEL, Urine Clarity CLEAR, Urine pH 6.0, Ur Specific [place] >= 1.030 , Urine Protein 30 H, Urine Ketones 40 H, Urine Nitrite NEG, Urine Bilirubin NEG@ICTO, Urine Urobilinogen 2.0 H, Ur Leukocyte Esterase NEG, Ur Microscopic SEDIMENT EXAMINED, Urine RBC 1-3, Urine WBC 3-5 H, Ur Epithelial Cells FEW, Urine Bacteria MANY H, Urine Mucus FEW, Urine Hemoglobin TRACE-INTACT, Urine Glucose NEG 02/13/18 1442: Anion Gap 11, Estimated GFR > 60, BUN/Creatinine Ratio 18.3, Glucose 138 H, Calcium 8.9, Magnesium 2.0, Total Bilirubin 0.9, AST 21, ALT 22, Alkaline Phosphatase 114, Troponin I < 0.01, Total Protein 6.6, Albumin 3.5, Globulin 3.1 , Albumin/Globulin Ratio 1.1, CBC w Diff MAN DIFF ORDERED, RBC 4.27, MCV 88.3, MCH 30.1, MCHC 34.1, RDW 12.6, MPV 8.6, Gran % 92.3 H, Lymphocytes % 3.4 L, Monocytes % 4.3, Eosinophils % 0, Basophils % 0, Absolute Granulocytes 11.6 H, Absolute Lymphocytes 0.4 L, Absolute Monocytes 0.5, Absolute Eosinophils 0, Absolute Basophils 0, Platelet Estimate VERIFIED BY SMEAR, Normocytic RBCs VERIFIED, Normochromic RBCs VERIFIED Microbiology 02/14 132 LOWER RESP: Respiratory Culture - ORD 02/14 1322 LOWER RESP: Gram Stain - ORD 02/13 2103 LOWER RESP: Respiratory Culture - CAN Cancelled: SPECIMEN NOT RECEIVED IN LABORATORY 02/13 2103 LOWER RESP: Gram Stain - CAN Cancelled: SPECIMEN NOT RECEIVED IN LABORATORY Assessment/Plan Assessment: 72 year old female with past medical history of COPD and chronic hypoxemic respiratory failure on 2L of home oxygen (Dr. Maurer), mild cognitive impairment, and restless leg syndrome presented with acutely worsening dyspnea, productive cough, and hypoxemia. COPD exacerbation: Afebrile, tachycardic on presentation, oxygen requirement back to baseline Leukocytosis-trending down on steroids Chest x-ray no infiltrate suggestive of pneumonia, hyperinflation Continue intravenous steroids, solumedrol 40mg bid Plan to taper to oral prednisone TRC evaluation Nebulized albuterol and ipatropium Incentive spirometry, encourage ambulation Follow up sputum cultures Continue azithromycin Mucinex 600mg BID On baseline will consult Dr. Maurer if condition worsens Heart Healthy diet DVT ppx-mechanical Full code Problem List: 1. COPD exacerbation Pain Ratin Pain Location: n/a Pain Goal: Pain 4 or less Pain Plan: prn Tomorrow's Labs & Rationales: none Mateo HAWK,Cinthya 02/14/18 1146: Attending MD Review Statement Attending Statement Attending MD Statement: examined this patient, discuss w/resident/PA/MEMBERSHIP MANAGER, agreed w/resident/PA/MEMBERSHIP MANAGER, reviewed EMR data (avail), discussed with nursing, discussed with case mgmt, amended to note Attending Assessment/Plan: Patient seen and examined. Sitting up in bed. Does not appear to be in acute respiratory distress. She reports feeling better compared to presentation. Reports a productive cough. Denies any difficulty swallowing. Denies any aspiration with meals. She is currently maintaining saturation on baseline oxygen supplementation. She is afebrile and hemodynamically stable. Blood pressure was mildly elevated in the room but has not improved. On examination she has adequate entry bilaterally with mild rhonchi. She has no jugular venous distention. She has no peripheral edema. Plan: -Continue management of her COPD exacerbation with bronchodilator therapy and systemic steroid therapy. -Continue steroid therapy with Solu-Medrol 40 mg IV every 12 hours today. May transition patient to prednisone starting tomorrow. -Continue antibiotic therapy with azithromycin for her underlying bronchitis. Azithromycin may be administered orally. Please initial sputum cultures are sent. -Mobilize patient to avoid deconditioning. -Repeat routine labs only if there is a change in her clinical status. -Please asses her mMRC dyspnea scale prior to discharge. -Repeat routine labs only if there is a change in her clinical status. -Please asses her mMRC dyspnea scale prior to discharge.
[2018-02-14 08:58] LABS: GRANULOCYTE % 94.6 % (42.2-75.2)
[2018-02-14 15:02] VITALS: BP 127/69
[2018-02-14 22:38] VITALS: BP 130/70
[2018-02-15 05:41] VITALS: BP 128/78
--- NOTE | 2018-02-15 07:02 | PN- Housestaff ---
Marsha HAWK,Maciel 02/15/18 0701: Subjective Follow-up For: copd exacerbation Subjective: persistent productive cough cloudy sputum, exertional dyspnea on baseline 2L oxygen [place], no significant respiratory distress planning to ambulate today afebrile mild BALDWIN this morning, resolved Review of Systems Constitutional: Reports: see HPI. Objective Last 24 Hrs of Vital Signs/I&O Vital Signs Date Time Temp Pulse Resp B/P B/P Pulse O2 O2 Flow FiO2 Mean Ox Delivery Rate 02/15 1232 92 Nasal 2.0L Cannula 02/15 0800 Nasal 2.0L Cannula 02/15 0541 98.3 90 24 128/78 93 Nasal 2.0L Cannula 02/15 0000 92 Nasal 2.0L Cannula 02/14 2238 98.7 92 20 130/70 92 Nasal Cannula 02/14 1645 90 Nasal 2.0L Cannula 02/14 1502 97.8 102 20 127/69 96 Nasal Cannula Intake & Output 02/15 1600 02/15 0800 02/15 0000 Intake Total 130 540 Output Total Balance 130 540 Intake, IV 10 300 Intake, Oral 120 240 Physical Exam General Appearance: Alert, Oriented X3, Cooperative, No Acute Distress Cardiovascular: Regular Rate, Normal S1, Normal S2, No Murmurs Lungs: improved air movement, but still globally diminished Abdomen: Normal Bowel Sounds, Soft, No Tenderness, No Masses Extremities: No Clubbing, No Cyanosis, No Edema, Normal Pulses Current Medications: Current Medications Sig/Polo Start time Last Medication Dose Route Stop Time Status Admin Albuterol Sulfate 3 ML EVERY 4 HRS/AWAKE 02/14 1200 AC 02/15 INH 1228 Albuterol Sulfate 2 PUF Q4-6 PRN PRN 02/13 1800 AC INH Azithromycin 500 MG DAILY 02/15 0900 AC 02/15 PO 0818 Azithromycin 500 MG Q24H 02/14 1700 DC 02/14 Sodium Chloride 250 ML IV 02/14 2200 1809 Budesonide/ 2 PUF BID 02/13 2100 AC 02/15 Formoterol Fumarate INH 0821 Diazepam 2 MG BID PRN 02/13 1800 AC 02/14 PO 2118 Guaifenesin 600 MG Q12 02/13 2100 AC 02/15 PO 0818 Memantine 10 MG BID 02/13 2100 AC 02/15 PO 0819 Methylprednisolone 40 MG Q12 02/13 2100 DC 02/15 IV 0816 Paroxetine HCl 20 MG DAILY 02/14 0900 AC 02/15 PO 0817 Patient Medication 1 ED ONE ONE 02/15 1145 DC 02/15 Teaching ED 02/15 1146 1158 Prednisone 40 MG DAILY 02/16 0900 AC PO Ropinirole HCl 1 MG QPM 02/13 2100 AC 02/14 PO 2108 Tiotropium [place] 1 PUF DAILY 02/14 0900 AC 02/15 INH 0819 Assessment/Plan Assessment: 72 year old female with past medical history of COPD and chronic hypoxemic respiratory failure on 2L of home oxygen (Dr. Leija), mild cognitive impairment, and restless leg syndrome presented with acutely worsening dyspnea, productive cough, and hypoxemia. COPD exacerbation: Afebrile, tachycardic on presentation, oxygen requirement back to baseline Leukocytosis-trending down on steroids Chest x-ray no infiltrate suggestive of pneumonia, hyperinflation Change to oral prednisone tomorrow and discharge on taper Outpatient follow up with research management associate, dr. leija TR evaluation Continue nebulized albuterol and ipatropium Incentive spirometry, encourage ambulation Sputum cultures-yeast Continue azithromycin x 5 days total Mucinex 600mg BID, symbicort and spiriva Restless legs Continue requip Heart Healthy diet DVT ppx-mechanical Full code Problem List: 1. COPD exacerbation Pain Ratin Pain Location: n/a Pain Goal: Pain 4 or less Pain Plan: prn Tomorrow's Labs & Rationales: none
[2018-02-15] MEDS ORDERED: PREDNISONE10 M2 PO (14:25)
[2018-02-15] MEDS ORDERED: AZITHROMYCIN500 M3 PO (14:26)
--- NOTE | 2018-02-15 14:27 | Patient Discharge Instructions ---
Discharge Instructions General Discharge Information You were seen/treated for: COPD exacerbation Special Instructions: Please follow up with your primary care physician and scout, Dr. Maurer , after discharge. Complete your antibiotics and prednisone taper as directed. Acute Coronary Syndrome Inclusion Criteria At DC or during hospital stay patient has or had the following: ACS DIAGNOSIS No Discharge Core Measures Meds if any: Prescribed or Continued at Discharge Meds if any: NOT Prescribed or Continued at Discharge Congestive Heart Failure Inclusion Criteria At DC or during hospital stay patient has or had the following: CHF DIAGNOSIS No Discharge Core Measures Meds if any: Prescribed or Continued at Discharge Meds if any: NOT Prescribed or Continued at Discharge Cerebrovascular accident Inclusion Criteria At DC or during hospital stay patient has or had the following: CVA/TIA Diagnosis No Discharge Core Measures Meds if any: Prescribed or Continued at Discharge Meds if any: NOT Prescribed or Continued at Discharge Venous thromboembolism Inclusion Criteria VTE Diagnosis No VTE Type NONE VTE Confirmed by (Test) NONE Discharge Core Measures - Per Current guidelines, there needs to be overlap - treatment for the first 5 days of Warfarin therapy. - If discharged on Warfarin prior to 5 days of - overlap therapy, the patient will need to be - assessed for post discharge needs including - *Post discharge parental anticoagulation - *Warfarin and/or parental anticoagulation education - *Follow up date to check INR post discharge At least 5 days overlap therapy as Inpatient No Meds if any: Prescribed or Continued at Discharge Note: Overlap Therapy is Warfarin and Anticoagulant Meds if any: NOT Prescribed or Continued at Discharge
[2018-02-15 16:18] VITALS: BP 120/75
[2018-02-15 22:14] VITALS: BP 113/67
[2018-02-16 06:20] VITALS: BP 123/65
--- NOTE | 2018-02-16 07:11 | Discharge Summary ---
Visit Information Visit Dates Admission Date: 02/13/18 Discharge Date: 02/16/18 Hospital Course Course Attending Physician: Cinthya Galindo MD Primary Care Physician: Brennan HAWK,[facility] Hospital Course: 72 year old female with past medical history of COPD and chronic hypoxemic respiratory failure on 2L of home oxygen (Dr. Maurer) and restless leg syndrome presented with acutely worsening dyspnea, productive cough, and hypoxemia. The patient's condition worsening was possibly related to exposure to a sick family member. She denied any fever but had a change in the quantity and color of her sputum production becoming more purulent over the past several days. Her worsening dyspnea had failed to improve with nebulized medications at home. On arrival in the ED, she was in mild respiratory distress, with tachypnea and an increased oxygen requirement up to 5L on arrival. She was treated with intravenous solumedrol, azithromycin and had nebulized albuterol and ipatropium treatments administered by respiratory therapy. She was admitted to general medicine for a COPD exacerbation. Chest x-ray showed hyperinflation but was negative for any infiltrates suggestive of pneumonia and she remained afebrile throughout her hospital course. A sputum culture was significant for light growth of yeast. Azithromycin was continued for a total of five days and steroids were titrated down rapidly as the patient's symptoms improved. She was discharged on a gradual prednisone taper. Symbicort, and spiriva were continued in addition to mucinex and nebulizer treatments. Her oxygen requirement quickly improved to her baseline of 2L nasal cannula continuously and she was ambulating independently with significantly less exertional dyspnea upon discharge. She was instructed to follow up with her primary care physician and cable mock up assembler after discharge. She was also given a referral to [facility]. Allergies: Coded Allergies: Cephalosporins (THINKS SHE ENDED UP IN ICU 11/14/16) Penicillins (HIVES AND RESPIRATORY DISTRESS 11/14/16) morphine (HALLUCINATIONS 11/14/16) promethazine (COMBATIVE, LETHARGIC, AMS, COMA 11/14/16) Disposition Summary Disposition Principal Diagnosis: COPD exacerbation Chronic hypoxemic respiratory failure Additional Diagnosis: COPD Chronic hypoxemic respiratory failure on 2 liters supplemental oxygen continuously Restless leg syndrome Discharge Disposition: home health services Discharge Instructions General Discharge Information Code Status: Full Code Patient's Diet: Heart healthy diet Patient's Activity: As tolerated Follow-Up Instructions/Appts: Please follow up with your primary care physician, Dr. Maurer, and COPD clinic after discharge. Medications at Discharge Discharge Medications: Continue taking these medications: Albuterol Sulfate (Proair Hfa) 90 MCG HFA.AER.AD 2 Puff Inhale through mouth EVERY 4-6 HOURS NEEDED as needed for COPD/ EMPHYSEMA Qty = 9 Comments: Last Taken: NOTGIVEN Time: Albuterol Sulfate (Albuterol Sulfate) 2.5 MG/3 ML (0.083 %) VIAL.NEB 1 Vial Inhale Solution EVERY 4 HOURS NEEDED as needed for COPD/EMPHYSEMA Comments: Last Taken: 02/16/18 Time: 9:15AM Tiotropium [place] (Spiriva) 18 MCG CAP.W.DEV 1 Capsule Inhale through mouth DAILY Qty = 30 Comments: Last Taken: 02/16/18 Time: 0900 AM Memantine HCl (Namenda XR) 28 MG CAP.SPR.24 1 Capsule ORAL DAILY Qty = 90 Comments: Last Taken: 02/16/18 Time: 9 AM Paroxetine HCl (Paroxetine HCl) 20 MG TABLET 1 Tablet ORAL As Directed Qty = 30 Comments: Last Taken: 02/16/18 Time: 0900 AM Lidocaine HCl (Lidocaine) 5 % OINT...G. 1 Application On the skin as needed for LEG PAIN Qty = 35 Comments: Last Taken: NOT GIVEN Time: Fluticasone/Salmeterol (Advair 250-50 Diskus) 250 MCG-50 MCG/DOSE BLST.W.DEV 1 Puff Inhale through mouth TWICE DAILY Days = 30 Comments: Last Taken: NOT GIVEN Time: Diazepam (Valium) 2 MG TABLET 1 Tablet ORAL TWICE DAILY as needed for anxiety/insomnia Qty = 20 Comments: Last Taken: 02/15/18 Time: 8:15PM Ropinirole HCl (Ropinirole HCl) 1 MG TABLET 1-2 Tablet ORAL Every night Qty = 180 Comments: Last Taken: 02/15/18 Time: 8PM Ipratropium/Albuterol Sulfate (Iprat-Albut 0.5-3(2.5) MG/3 Ml) 0.5 MG-3 MG (2.5 MG BASE)/3 ML AMPUL.NEB 1 Unit ORAL Comments: DID NOT ADMINISTER Start taking the following new medications: Prednisone (Prednisone) 10 MG TABLET 1 Tablet ORAL As Directed Qty = 25 No Refills Instructions: 4TABS X 2DAYS, 3TABS X3DAYS, 2TABS X3DAYS, 1TAB X3DAYS Comments: Last Taken: 02/16/18 Time: 9AM Azithromycin (Azithromycin) 500 MG TABLET 1 Tablet ORAL DAILY Qty = 1 No Refills Instructions: TAKE 02/17/18 Comments: Last Taken: 02/16/18 Time: 9AM Copies To: [place] HAWK,Adarsh Hendrix; Brennan HAWK,Natalia Attending MD Review Statement Documenting Attending: Cinthya Galindo MD Other Findings: Patient is stable to be discharged home today.
--- NOTE | 2018-02-16 07:11 | PN- Housestaff ---
See Addendum Subjective Follow-up For: copd exacerbation Subjective: breathing is improved, including exertional dyspnea persistent productive cough yellow/green sputum on baseline 2L oxygen [place], no significant respiratory distress afebrile headache resolved Review of Systems Constitutional: Reports: see HPI. Objective Last 24 Hrs of Vital Signs/I&O Vital Signs Date Time Temp Pulse Resp B/P B/P Pulse O2 O2 Flow FiO2 Mean Ox Delivery Rate 02/17 620 98.3 91 20 123/65 95 Nasal Cannula 02/16 0000 Nasal 2.0L Cannula 02/15 2214 98.1 91 24 113/67 96 Nasal 2.0L Cannula 02/15 1640 93 Nasal 2.0L Cannula 02/15 1618 98.2 70 20 120/75 95 02/15 1600 Nasal 2.0L Cannula 02/15 1232 92 Nasal 2.0L Cannula Intake & Output 02/16 1600 02/16 0800 02/16 0000 Intake Total 120 300 Output Total Balance 120 300 Intake, Oral 120 300 Number 0 1 Bowel Movements Physical Exam General Appearance: Alert, Oriented X3, Cooperative, No Acute Distress Cardiovascular: Regular Rate, Normal S1, Normal S2, No Murmurs Lungs: diminished breath sounds, no audible wheezing Abdomen: Normal Bowel Sounds, Soft, No Tenderness, No Masses Extremities: No Clubbing, No Cyanosis, No Edema, Normal Pulses Current Medications: Current Medications Sig/Polo Start time Last Medication Dose Route Stop Time Status Admin Albuterol Sulfate 3 ML EVERY 4 HRS/AWAKE 02/14 1200 AC 02/16 INH 0519 Albuterol Sulfate 2 PUF Q4-6 PRN PRN 02/13 1800 AC INH Azithromycin 500 MG DAILY 02/15 900 AC 02/15 PO 0818 Budesonide/ 2 PUF BID 02/13 2100 AC 02/15 Formoterol Fumarate INH 2014 Diazepam 2 MG BID PRN 02/13 1800 AC 02/15 PO 2016 Guaifenesin 600 MG Q12 02/13 2100 AC 02/15 PO 2014 Memantine 10 MG BID 02/13 2100 AC 02/15 PO 1900 Methylprednisolone 40 MG Q12 02/13 2100 DC 02/15 IV 0816 Paroxetine HCl 20 MG DAILY 02/14 900 AC 02/15 PO 0817 Patient Medication 1 ED ONE ONE 02/15 1145 DC 02/15 Teaching ED 02/15 1146 1158 Prednisone 40 MG DAILY 06/07 0900 AC PO Ropinirole HCl 1 MG QPM 02/13 2100 AC 02/15 PO 2000 Tiotropium [place] 1 PUF DAILY 02/14 0900 AC 02/15 INH 0819 Assessment/Plan Assessment: 72 year old female with past medical history of COPD and chronic hypoxemic respiratory failure on 2L of home oxygen (Dr. Leija), mild cognitive impairment, and restless leg syndrome presented with acutely worsening dyspnea, productive cough, and hypoxemia. COPD exacerbation: Afebrile, tachycardic on presentation, oxygen requirement back to baseline 2L Leukocytosis-trending down on steroids Chest x-ray no infiltrate suggestive of pneumonia, hyperinflation Prednisone 40mg today, discharge on taper Continue azithromycin x 5 days total Mucinex 600mg BID, symbicort and spiriva Outpatient follow up with underwriting assistant, dr. leija Continue nebulized albuterol and ipatropium Incentive spirometry, encourage ambulation Sputum cultures-yeast Restless legs Continue requip Heart Healthy diet DVT ppx-mechanical Full code Stable for discharge on prednisone taper and azithromycin. Follow up with Dr. Leija and COPD clinic Problem List: 1. COPD exacerbation 2. Bronchitis Pain Ratin Pain Location: n/a Pain Goal: Pain 4 or less Pain Plan: prn Tomorrow's Labs & Rationales: none, discharge
[2018-02-16] MEDS ORDERED: AZITHROMYCIN500 M3 PO ×2 (08:59→09:48)
[2018-02-16] MEDS ORDERED: PREDNISONE10 M2 PO (09:48)
== END 2018-02-16 13:35 | disposition home health service (06) | DRG 191 ==
LOC: ERH 13:45 → ERHI 15:34 → 2NA 15:34 → ENRESERV 20:49 → 2NA 21:41 → ENTRNSPT 21:55 → EDTRNSPTSTS 22:02 → EDTRNSPT 22:02 → CMPTRNSPT 22:19 → 2NA 02-14 15:00 → ENPENDDIS 02-16 09:49 → ENTRNSPT 02-16 13:26 → CMPTRNSPT 02-16 13:30 → 2NA 02-16 13:35
PROVIDERS: Internal Medicine Cardiovascular Disease; Physician Assistant
DX: J44.1 Chronic obstructive pulmonary disease with (acute) exacerbation (principal); J96.11 Chronic respiratory failure with hypoxia; Z99.81 Dependence on supplemental oxygen; Z87.891 Personal history of nicotine dependence; G25.81 Restless legs syndrome; Z88.1 Allergy status to other antibiotic agents; Z88.5 Allergy status to narcotic agent; Z88.0 Allergy status to penicillin; Z88.8 Allergy status to other drugs, medicaments and biological substances; Z79.51 Long term (current) use of inhaled steroids
CPT/HCPCS: 2NASP; 36592; 71046; 81001; 82436; 87070; 87071; 93005; 93010; 94644; 96374; J0456; J2405; J2920; J3101; J3250; J3490; J7040